=== PATIENT | female | born 1945 | race Caucasian/White ===

== ENCOUNTER 2020-04-08 13:21 | Outpatient (CLI) | payer MEDICARE, OTHER, SELFPAY ==
--- NOTE | 2020-04-08 14:27 | MM_ITS ---
WS: [id number] DIAGNOSTIC BILATERAL DIGITAL MAMMOGRAM WITH CAD HISTORY: RIGHT BREAST PAIN COMPARISON: 12/24/2016 TECHNIQUE: Bilateral craniocaudad, mediolateral oblique, and mediolateral views are submitted. Spot c ompression RIGHT CC Computer aided detection utilized. Breast composition: There are scattered areas of fibroglandular density. Palpable marker is placed al macrina the RIGHT breast at 3:00. There is no underlying mass identified. There are several nodules withi n the LEFT breast. These nodules are stable since 2017. MM/[place] [id number] IMPRESSION: BI-RADS: 0-Incomplete: Need additional imaging evaluation FOLLOW UP: Need Additional Imaging Ultrasound evaluation of the palpable abnormality in the RIGHT breast is recomm ended. Unfortunately we were not able to perform the ultrasound on the same day as a diagnostic mammogram as the prior studies were not available for comparis on.
== END 2020-04-08 13:22 | disposition home or self-care (01) ==
LOC: RADSHAW 13:32
PROVIDERS: Family Provider Family Medicine; Visit Provider Family Medicine
DX: N64.4 Mastodynia (principal)
CPT/HCPCS: 77066

== ENCOUNTER 2020-04-09 13:39 | Outpatient (CLI) | payer MEDICARE, OTHER, SELFPAY ==
--- NOTE | 2020-04-09 14:00 | US_ITS ---
WS: [id number] ULTRASOUND RIGHT BREAST HISTORY: RIGHT BREAST PALPABLE AREA AT 3:00. COMPARISON: None available. TECHNIQUE: 2-D and Doppler. Palpable area at 3:00. There is no underlying mass or soft tissue change. Note shadowing or distortio n. US/US breast RT limited* [id number] IMPRESSION: BI-RADS: 2-Benign FOLLOW-UP: 1 Year Follow-up
== END 2020-04-09 13:40 | disposition home or self-care (01) ==
LOC: RADSHAW 13:39
PROVIDERS: PCP Family Medicine; Visit Provider Family Medicine
DX: N64.4 Mastodynia (principal)
CPT/HCPCS: 76642

== ENCOUNTER 2020-09-07 01:48 | Inpatient (IN) | payer MEDICARE, OTHER, SELFPAY ==
[2020-09-07] VITALS (28 sets, daily range): BP systolic 163–182; BP diastolic 66–91; PULSE 65–97; RESP 1–23; TEMP 36.7–36.8; O2SAT 90–95; BMI 33.3
--- NOTE | 2020-09-07 02:03 | PM.HP ---
Providers/Chief Complaint Admitting Physician: Era Mckeon MD Primary Care Provider: Prince Vázquez Chief Complaint: Chest Pain History of Present Illness Kayla Ibrahim is a 75 year old female who has history of hypertension, obesity, CVA presented today with chief complaint of left-sided chest discomfort. Patient is stating that for last 3 to 5 days she has been experiencing on and off/intermittent chest discomfort. She saw her PCP few days ago who recommended her to avoid strenuous activities and get a stress test. At home she was working at her computer when she started experiencing left-sided chest discomfort, she called her PCP again who recommended her to go to the ER if pain persisted more than 20 minutes, patient is stating that it stayed for about 35 minutes and got relieved after third nitroglycerin. She is describing this pain as sharp/stabbing radiating to his left shoulder. No nausea, vomiting or diaphoresis. She does not smoke or drink alcohol, lives alone, called her sister who brought her to [place] ER. I was called by the ER physician for chest pain rule out, on arrival patient was hypertensive 200/87 mmHg, reproducible chest pain no shortness of breath saturating well Outside facility blood work revealed troponin 6, D-dimer unremarkable, magnesium normal, creatinine 1.2 otherwise normal chest x-ray, CBC and BMP, EKG sinus rhythm without ischemic or infarct change Patient is stating that 11 years ago in [place] she had left heart cardiac catheterization which revealed 50% stenosis of her left coronary artery, she never had any stents placed no history of NV, CHF, stroke or cancer. She had screening colonoscopy 3 polyps were removed they were benign. Review of Systems Const: Denies: fever(s) Eyes: Denies: change in vision ENMT: Denies: throat pain Card: Reports: chest pain; Denies: palpitations, irregular heart rhythm, swelling of feet/ankles, lightheadedness, dyspnea on exertion or orthopnea Resp: Denies: dyspnea GI: Denies: abdominal pain : Denies: flank pain Musc: Denies: neck pain Skin/Breast: Denies: rash Neuro: Denies: headache(s) Psych: Denies: anxiety Endo: Denies: polyuria Carmine/Lymph: Denies: easy bruising All/Imm: Denies: urticaria Medications/Allergies Home Medications Medication Instructions Recorded Confirmed Last Taken Type allopurinol 100 mg PO DAILY 09/07/20 09/07/20 09/06/20 08:00 History amlodipine 5 mg PO DAILY 09/07/20 09/07/20 09/06/20 08:00 History aspirin 81 mg PO DAILY 09/07/20 09/07/20 09/06/20 08:00 History azelastine 2 spray INTRANASAL BID 09/07/20 09/07/20 09/06/20 08:00 History baclofen 10 mg PO DAILY 09/07/20 09/07/20 09/06/20 08:00 History cetirizine 10 mg PO DAILY 09/07/20 09/07/20 09/06/20 08:00 History famotidine 20 mg PO BID PRN 09/07/20 09/07/20 09/06/20 08:00 History furosemide 20 mg PO BID 09/07/20 09/07/20 09/06/20 08:00 History losartan 100 mg PO DAILY 09/07/20 09/07/20 09/06/20 08:00 History lovastatin 20 mg PO 1700 09/07/20 09/07/20 09/06/20 17:00 History potassium chloride 20 meq PO DAILY 09/07/20 09/07/20 09/06/20 08:00 History propranolol 60 mg PO DAILY 09/07/20 09/07/20 09/06/20 08:00 History PFSH Acute PFSH: Medical History Abnormal colonoscopy 3 benign polyps CAD (coronary artery disease) CVA (cerebral vascular accident) HTN (hypertension) Obesity Surgical History H/O: hysterectomy Hip joint replacement status Family History Denies family history of CAD (coronary artery disease) Chronic kidney disease (CKD) Cancer Social History Smoking and tobacco status: former smoker Alcohol intake: never Substance/Drug Use: never Lives independently: Yes Housing: House Physical Exam Narrative: EXAM NARRATIVE: Very pleasant and cooperative female Was laying in her left lateral position when I enter the room, Reproducible chest pain S1, S2 no signs of heart failure or murmur Abdomen soft central obesity Lower extremity no edema gangrene or ulcer EOMI, PERRLA GCS 15 awake alert no neurological deficits Bilateral breath sounds no adventitious rhonchi or crackles No joint swelling A&P Assessment and plan (1) Atypical chest pain: Status: Acute (2) Obesity: Status: Acute (3) HTN (hypertension): Status: Acute Additional A&P Information Atypical chest pain Reproducible, EKG unremarkable troponin D-dimer unremarkable Differentials would include musculoskeletal chest discomfort, PE ruled out due to low D-dimer, patient is stating that she had 50% nausea of left coronary vessel which was 11 years ago, she did not respond to nitroglycerin however third nitroglycerin did help her symptoms, she will need cardiac stress test outpatient We will request echo in the morning and observe overnight we will do 6-hour troponin and EKG Hypertensive urgency Systolic blood pressure 200/86 mmHg, I will give her hydralazine 5 mg IV push and keep her on losartan and amlodipine, I will increase her amlodipine dose to 10 mg Lower extremity swelling: Patient does take furosemide 20 mg daily Clinically does not look fluid overloaded no active signs of heart failure Cardiac diet DVT prophylaxis Lovenox Full code Attestations Medical Necessity Statement*: Anticipating discharge in less than 48 hours will need investigation for chest pain rule out Time Spent in Patient Care: (>than 50% of time spent in counselling and/or direct pt care on unit). 30mins Coding Level of Care Code Acute Tufting Machine Fixer for Chg Fwd Diagnoses Atypical chest pain R07.89 Obesity E66.9 HTN (hypertension) I10
--- NOTE | 2020-09-07 02:12 | ECG_ITS ---
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 Measurements Intervals [place] Rate: 70 P: 42 [place]: 137 QRS: -9 QRSD: 100 T: 18 QT: 432 QTc: 467 Interpretive Statements SINUS RHYTHM WITH SINUS ARRHYTHMIA LOW QRS VOLTAGE IN PRECORDIAL LEADS [QRS DEFLECTION < 1.0 mV IN CHEST LEADS] NONSPECIFIC T-WAVE ABNORMALITY No previous ECG available for comparison Electronically Signed On 09-08-2020 10:37:44 CDT by Angela Diego M.D. [email or web address].[email or web address]/store/[id number]
--- NOTE | 2020-09-07 02:12 | USCV_ITS ---
Alexandria Kayla Age: 75 Gender: F : 1945 Exam Date: 09/07/2020 08:25 Ordering Phys: Era Mckeon MD Technologist: Shannan Rodriguez Exam Location: [facility] [place] Indication: ANGINA BP: 179 / 67 HR: 75 Rhythm: Sinus Technical Quality: Fair MEASUREMENTS (Male / Female) Normal Values 2D ECHO LV Diastolic Diameter PLAX 3.1 cm 4.2 - 5.9 / 3.9 - 5.3 cm LV Systolic Diameter PLAX 1.8 cm LV Chamber Size 3.7 cm IVS Diastolic Thickness 1.3 cm 0.6 - 1.0 / 0.6 - 0.9 cm IVS Systolic Thickness 1.8 cm LVPW Diastolic Thickness 1.0 cm 0.6 - 1.0 / 0.6 - 0.9 cm LVPW Systolic Thickness 1.1 cm RV Chamber Size 2.3 cm LVOT Diameter 1.9 cm LV Ejection Fraction 2D Teich 75.1 % LV Ejection Fraction MOD 2C 74.3 % LV Ejection Fraction 2C AL 75.7 % LA Diameter 3.1 cm LA Width 3.4 cm LA Height 5.5 cm RA Width 1.9 cm RA Height 4.8 cm Aorta at Sinotubular Diameter 2.0 cm M-MODE LV Diastolic Diameter MM 5.5 cm 4.2 - 5.9 / 3.9 - 5.3 cm LV Systolic Diameter MM 3.2 cm LV Ejection Fraction MM Teich 72.3 % IVS Diastolic Thickness MM 1.0 cm 0.6 - 1.0 / 0.6 - 0.9 cm IVS Systolic Thickness MM 1.4 cm LVPW Diastolic Thickness MM 1.2 cm 0.6 - 1.0 / 0.6 - 0.9 cm LVPW Systolic Thickness MM 1.4 cm RV Diastolic Diameter MM 0.7 cm Aortic Annulus Diameter 3.2 cm LA Ao Ratio MM 1.1 MV E Point Septal Separation 0.3 cm DOPPLER AV Peak Velocity 137.0 cm/s LVOT Peak Velocity 139.0 cm/s AV Area Cont Eq vti 2.7 cm squared AV Area Cont Eq pk 2.8 cm squared MV Area PHT 2.8 cm squared Mitral E to A Ratio 0.7 MV E' Velocity 43.5 cm/s Mitral E to MV E' Ratio 11.0 Mitral E to LV E' Lateral Ratio 10.9 Mitral E to LV E' Septal Ratio 11.2 TR Peak Velocity 300.3 cm/s TR Peak Gradient 36.1 mmHg TV Peak E Velocity 44.0 cm/s Right Atrial Pressure 3.0 mmHg Pulmonary Artery Systolic Pressu 39.1 mmHg PV Peak Velocity 80.0 cm/s RV Acceleration Time 0.1 s RV Ejection Time 0.2 s RV AcT/ET 0.2 FINDINGS Left Ventricle Normal left ventricular size, systolic function and wall thickness, with no regional wall motion abnormalities. Left ventricular ejection fraction is estimated at 65 %. Normal diastolic function. Right Ventricle Normal right ventricular size and systolic function. Right ventricular systolic pressure 40 mmHg. Right Atrium Normal right atrial size. Right atrial pressure estimated at 3 mmHg. Left Atrium Mildly increased left atrial size. Mitral Valve Thickened mitral valve. No mitral valve stenosis. No mitral valve regurgitation. Aortic Valve Structurally normal trileaflet aortic valve. No aortic valve stenosis. No aortic valve regurgitation. Tricuspid Valve Structurally normal tricuspid valve. Trace tricuspid valve regurgitation. Pulmonic Valve Pulmonic valve not well visualized. Pericardium No pericardial effusion. Prominent epicardial fat. Aorta Normal size aortic root. Normal-sized inferior vena cava. CONCLUSIONS 1. Normal left ventricular size, systolic function and wall thickness, with no regional wall motion abnormalities. Left ventricular ejection fraction is estimated at 65 %. Normal diastolic function. 2. Normal right ventricular size and systolic function. 3. Pulmonary artery pressure estimated at 40 mmHg. 4. No significant valvular abnormality. 5. No prior similar studies to compare. Angela Diego MD (Electronically Signed) Final Date: 08 September 2020 18:05 S
[2020-09-07] MEDS: lidocaine 2% viscous 15 ML, aluminum-mag hydrox-simethicon 30 ML, sucralfate oral liq 1 GM PO (03:01)
[2020-09-07] MEDS: hyDRALAzine 20 mg/mL INJ 1 mL 10 MG IVP ×2 (03:05→14:26)
[2020-09-07] MEDS: enoxaparin 40 mg/0.4 mL Syringe SUBCUT (03:05)
[2020-09-07] MEDS: LORazepam 0.5 mg Tablet 0.25 MG PO (03:18)
--- NOTE | 2020-09-07 03:32 | PC.NURSE ---
Patient arrived on unit via EMS. Patient is A & O x4. Patient has complaints of GI upset and increased BP during transport per EMS. BP 218/92 at arrival. Medications ordered and given for BP. Nurse will continue to monitor.
[2020-09-07 04:15] LABS: Anion Gap 12.8 (5-19); Blood Urea Nitrogen 23 mg/dL (8-23); Calcium 9.3 mg/dL (8.5-10.5); Carbon Dioxide 26 mmol/L (22-29); Chloride 103 mmol/L (98-107); Glucose 101 mg/dL (65-115); Osmolality Calculated 290 mOsm/kg (285-295); Potassium 3.8 mmol/L (3.5-5.1); Sodium 138 mmol/L (136-145)
[2020-09-07 04:25] LABS: Thyroid Stimulating Hormone 1.81 uIU/mL (0.27-4.20)
[2020-09-07 05:01] LABS: Troponin T (5th) Once 8 ng/L (0-10)
[2020-09-07] MEDS: losartan 50 mg Tablet 100 MG PO (08:07)
[2020-09-07] MEDS: allopurinol 100 mg Tablet PO (08:07)
[2020-09-07] MEDS: aspirin 81 mg Chew Tablet PO (08:07)
--- NOTE | 2020-09-07 08:33 | PC.NURSE ---
patient refused amlodipine at this time states i take that at night time and only half the dose being offered now i will not be messing with my blood pressure meds my blood pressure is fine and i will be taking them how i normally do when i get home will report to provider
--- NOTE | 2020-09-07 09:35 | ECG_ITS ---
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 Measurements Intervals [place] Rate: 69 P: 46 MT: 138 QRS: -6 QRSD: 90 T: 44 QT: 413 QTc: 443 Interpretive Statements SINUS RHYTHM Compared to ECG 09/07/2020 05:58:29 Sinus arrhythmia no longer present T-wave abnormality no longer present Electronically Signed On 09-08-2020 10:52:49 CDT by Angela Diego M.D. [id number]
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
--- NOTE | 2020-09-07 09:39 | PC.NURSE ---
call from Dr. Koch at this time in response to patient reports of chest pain that radiated to back sharp and intermittent in nature, patient also reports a headache starting instructions received to order Tylenol 650 mg Q4H PRN for pain other orders to be placed by provider for diagnostics
[2020-09-07] MEDS: iohexol 350 mg/mL 100 mL Btl IV (10:04)
[2020-09-07] MEDS: acetaminophen 325 mg Tablet 650 MG PO ×2 (10:16→21:11)
[2020-09-07 10:56] LABS: Troponin T (5th) Once 7 ng/L (0-10)
[2020-09-07] MEDS: pantoprazole DR 40 mg Tablet PO (14:26)
--- NOTE | 2020-09-07 17:31 | ECG_ITS ---
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 Measurements Intervals [place] Rate: 95 P: 42 OR: 112 QRS: -4 QRSD: 87 T: 44 QT: 373 QTc: 469 Interpretive Statements SINUS RHYTHM WITH SHORT OR INTERVAL Compared to ECG 09/07/2020 10:43:42 Short OR interval now present Electronically Signed On 09-08-2020 10:30:07 CDT by Angela Diego M.D. [id number]
[2020-09-07] MEDS: nitroglycerin 0.4 mg sublingual Tablet SUBLINGUAL (17:58)
[2020-09-07] MEDS: atorvastatin 40 mg Tablet 20 MG PO (17:59)
--- NOTE | 2020-09-07 18:00 | PC.NURSE ---
patient reports chest pain and palpitations and racing heart rate blood pressure remains elevated 170/86 nitro given 153//78 after 1 nitro chest pain relived however is intermittent in nature patient reporting headache after nitro administration 139/74 5 min after administration
--- NOTE | 2020-09-07 19:41 | PC.NURSE ---
Beside report received from Kristen Greer RN. Patient is resting in bed watching TV. A & O x4. Assisted patient to bathroom. Patient verbalizes headache but no other needs or concerns at this time. Nurse will continue to monitor.
--- NOTE | 2020-09-07 19:59 | PM.PN ---
Subjective Subjective: Interval history: Continue to have intermittent episodes of pain in the left side lower chest radiating to the back toward the scapula. Currently no vomiting. Normal nausea. No abdominal pain elsewhere. Has been having some intermittent cough for a while. Denies pleuritic component to the pain. No hemoptysis. Repositioning, inspiration, do not trigger the pain, although it sometimes appears in different positions. Reports she did pull a muscle elsewhere on the left side previously but this has been healing. Current pain started almost out of nowhere while she was sitting down playing a computer card game. Denies any significant recent stressors. Blood pressure elevated and difficult to control, and she denies that this has been an issue for her previously. At home blood pressures usually run 130s. Earlier today having a headache as well. Currently better. Vitals/I&O/Wt Last Vital Signs Temp 98.3 F 09/07/20 10:35 Pulse 70 09/07/20 14:00 Resp 19 H 09/07/20 10:35 BP 182/66 09/07/20 15:07 Pulse Ox 95 09/07/20 10:35 09/07/20 09/07/20 09/07/20 06:59 14:59 22:59 Intake Total 240 / 240 240 / 480 Balance 240 / 240 240 / 480 Weight last 48 hrs Weight 77.428 kg Physical Exam Const: COMMON NORMALS: no acute distress and patient oriented x3 HENMT: COMMON NORMALS: oropharynx normal Neck/C-Spine: COMMON NORMALS: no JVD Resp: COMMON NORMALS: normal respiratory effort and clear to auscultation bilaterally AUSCULTATION: clear to auscultation bilaterally Cardio: COMMON NORMALS: no JVD, regular rhythm, S1 normal heart sound present, S2 normal heart sound present and No murmurs present (Cardio) RHYTHM: regular rhythm HEART SOUNDS: S1 normal heart sound present and S2 normal heart sound present GI: COMMON NORMALS: Normal to inspection, nondistended, normoactive bowel sounds present, Soft to palpation and non-tender PALPATION: Yes Soft to palpation Extremity: COMMON NORMALS: no joint enlargement and no pedal edema Neuro: COMMON NORMALS: patient oriented x3 and moves all extremities Skin: COMMON NORMALS: no rashes or lesions noted GENERAL SKIN EXAM: no rashes or lesions noted Data : 09/07/20 02:56 A&P Assessment and plan (1) Atypical chest pain: Recurrent episodes of left-sided chest pain radiating to the left scapula. Still happening. Atypical chest pain, but without clear trigger/etiology. Due to hypertension, persistence of symptoms CT angiogram chest obtained. No dissection reported, no PE noted and opacified arteries. Incidentally found antral duodenal wall thickening. Discussed findings with her. She has been taking ibuprofen recently. We are starting her on Protonix. Chest pain radiating to the back could be secondary to duodenal inflammation, although it is rating towards left scapula and associated with hypertension which is unusual for her. She does have known coronary disease, reports years ago has had angiogram with found 50% stenosis of one of the coronary arteries at which time had no intervention performed. Currently for generation troponin repeatedly normal. EKG not suggestive of acute RI. Discussed with her. We have requested TTE which has been done, not read so far. We will continue to optimize blood pressures, she has required several intravenous medication doses to try to control recurrent blood pressure spikes. We will follow-up TTE result. Initiate Imdur. Monitor symptoms. She understands will need additional assessment/risk stratification. Continue aspirin, propranolol not available, will add metoprolol, statin. Status: Acute (2) HTN (hypertension): Resistant hypertension, difficult to control, with hypertensive urgency. Required additional IV dose of hydralazine. Amlodipine dose increased to 10 mg p.o. She had declined to take the morning dose. Switch to bedtime. Continue losartan. Add metoprolol. Imdur. Continue cardiac diet. Discussed with her to discontinue ibuprofen. Status: Acute (3) Gastroduodenitis: Start PPI. Discussed with her to discontinue ibuprofen. Status: Acute Additional A&P Information Lower extremity swelling: Patient does take furosemide 20 mg daily Clinically does not look fluid overloaded no active signs of heart failure Cardiac diet DVT prophylaxis Lovenox Full code Attestations Medical Necessity Statement*: Admission of over 2 midnights is needed for assessment management of recurrent episodes of unexplained chest pain, resistant difficult to control hypertension with hypertensive urgency, in a lady with known underlying coronary disease. Coding Level of Care Code Acute Watch Assembler for [facility] Fwd Diagnoses Atypical chest pain R07.89 HTN (hypertension) I10 Gastroduodenitis K29.90
[2020-09-07] MEDS: isosorbide mononitrate ER 30 mg Tablet PO (21:07)
[2020-09-07] MEDS: metoprolol tartrate 25 mg Tablet PO (21:08)
[2020-09-07] MEDS: amlodipine 5 mg Tablet 10 MG PO (21:08)
[2020-09-08] VITALS (10 sets, daily range): BP systolic 116–133; BP diastolic 54–72; PULSE 63–78; RESP 16–21; TEMP 36.6–37; O2SAT 92–96
[2020-09-08] MEDS: enoxaparin 40 mg/0.4 mL Syringe SUBCUT (03:01)
[2020-09-08 05:49] LABS: Basophils % 0.4 %; Eosinophils % 0.8 %; Hematocrit 46.9 % (37.0-47.0); Hemoglobin 14.7 g/dL (11.5-15.3); Lymphocytes # 1.8 10^3/uL (0.8-4.8); Lymphocytes % 33.1 %; Mean Corpuscular HGB Conc 31.3 g/dL (30.0-36.0); Mean Corpuscular Hemoglobin 29.5 pg (28.0-34.0); Mean Platelet Volume 12.1 fL (7.4-10.4); Monocytes # 1.6 10^3/uL (0.2-0.9); Monocytes % 29.5 %; Neutrophils # 1.84 10^3/uL (1.8-7.7); Neutrophils % 34.5 %; Nucleated Red Blood Cells % 0 %; Platelet Count 136 10^3/cmm (130-400); Red Blood Count 4.99 10^6/uL (4.1-5.3); Red Cell Distribution Width 12.1 % (12.1-15.1); White Blood Count 5.3 10^3/uL (4.0-10.0)
[2020-09-08] MEDS: pantoprazole DR 40 mg Tablet PO (08:25)
[2020-09-08] MEDS: metoprolol tartrate 25 mg Tablet PO ×2 (08:25→20:15)
[2020-09-08] MEDS: allopurinol 100 mg Tablet PO (08:26)
[2020-09-08] MEDS: losartan 50 mg Tablet 100 MG PO (08:26)
[2020-09-08] MEDS: aspirin 81 mg Chew Tablet PO (08:26)
--- NOTE | 2020-09-08 08:36 | PC.NURSE ---
spoke with Dr washington with concerns of patient taking new dose of imdur at 2100 last night and its marked as a daily medication blood pressure 133/68 with no reports of chest pain or discomfort instructions from Dr. washington to change imdur time to 1800 if need be we will re-evaluate if needed
[2020-09-08 09:16] LABS: Alanine Aminotransferase 9 U/L (0-33); Albumin Level 4.2 g/dL (3.5-5.2); Alkaline Phosphatase 83 IU/L (35-105); Anion Gap 12.8 (5-19); Aspartate Amino Transferase 15 U/L (0-32); Blood Urea Nitrogen 14 mg/dL (8-23); Calcium 9.3 mg/dL (8.5-10.5); Carbon Dioxide 25 mmol/L (22-29); Chloride 102 mmol/L (98-107); Globulin 2.3 g/dL (1.3-4.6); Glucose 142 mg/dL (65-115); Osmolality Calculated 285 mOsm/kg (285-295); Potassium 3.8 mmol/L (3.5-5.1); Sodium 136 mmol/L (136-145); Total Bilirubin 0.5 mg/dL (0.15-1.2); Total Protein 6.5 g/dL (6.6-8.7)
[2020-09-08] MEDS: atorvastatin 40 mg Tablet 20 MG PO (17:54)
[2020-09-08] MEDS: isosorbide mononitrate ER 30 mg Tablet PO (17:54)
[2020-09-08] MEDS: amlodipine 5 mg Tablet 10 MG PO (20:15)
--- NOTE | 2020-09-08 20:48 | P.PN_ITS ---
Subjective Subjective: Interval history: This morning she was again having an episode of chest pain, which had since resolved. Does not feel safe returning home currently. Would like to stay for stress test tomorrow. Otherwise denies headache, dizziness, lightheadedness or shortness of breath. No nausea vomiting. No abdominal pain. Vitals/I&O/Wt Last Vital Signs Temp 98 F 09/08/20 19:34 Pulse 72 09/08/20 19:34 Resp 17 09/08/20 19:34 BP 130/54 09/08/20 19:34 Pulse Ox 92 09/08/20 19:34 09/08/20 09/08/20 09/08/20 06:59 14:59 22:59 Intake Total 250 / 730 480 / 480 240 / 720 Balance 250 / 730 480 / 480 240 / 720 Weight last 48 hrs Weight 77.428 kg Physical Exam Const: COMMON NORMALS: no acute distress and patient oriented x3 HENMT: COMMON NORMALS: oropharynx normal Neck/C-Spine: COMMON NORMALS: no JVD Resp: COMMON NORMALS: normal respiratory effort and clear to auscultation bilaterally AUSCULTATION: clear to auscultation bilaterally Cardio: COMMON NORMALS: no JVD, regular rhythm, S1 normal heart sound present, S2 normal heart sound present and No murmurs present (Cardio) RHYTHM: regular rhythm HEART SOUNDS: S1 normal heart sound present and S2 normal heart sound present GI: COMMON NORMALS: Normal to inspection, nondistended, normoactive bowel sounds present, Soft to palpation and non-tender PALPATION: Yes Soft to palpation Extremity: COMMON NORMALS: no joint enlargement and no pedal edema Neuro: COMMON NORMALS: patient oriented x3 and moves all extremities Skin: COMMON NORMALS: no rashes or lesions noted GENERAL SKIN EXAM: no rashes or lesions noted Data : 09/08/20 04:59 09/08/20 08:15 A&P Assessment and plan (1) Atypical chest pain: Again episode this morning. Overall better, none since the morning. Does not feel secure returning home. Will continue to monitor. Optimize hypertension. Will request for stress test for tomorrow. Continue Imdur. Antihypertensives. Continue PPI. Recurrent episodes of left-sided chest pain radiating to the left scapula. Still happening. Atypical chest pain, but without clear trigger/etiology. Due to hypertension, persistence of symptoms CT angiogram chest obtained. No dissection reported, no PE noted and opacified arteries. Incidentally found antral duodenal wall thickening. Discussed findings with her. She has been taking ibuprofen recently. We are starting her on Protonix. Chest pain radiating to the back could be secondary to duodenal inflammation, although it is rating towards left scapula and associated with hypertension which is unusual for her. She does have known coronary disease, reports years ago has had angiogram with found 50% stenosis of one of the coronary arteries at which time had no intervention performed. Currently for generation troponin repeatedly normal. EKG not suggestive of acute [place]. TTE with normal ejection fraction. Continue aspirin, propranolol not available, added metoprolol. Statin. Status: Acute (2) HTN (hypertension): Blood pressure is much better today. Overall is feeling better. Continue Imdur, losartan, amlodipine, metoprolol. Discussed with her to discontinue ibuprofen. Status: Acute (3) Gastroduodenitis: Started PPI. Discussed with her to discontinue ibuprofen. With smoking history would benefit from endoscopic follow-up. Status: Acute Additional A&P Information Lower extremity swelling: does not look fluid overloaded no active signs of heart failure Cardiac diet DVT prophylaxis Lovenox Full code Attestations Medical Necessity Statement*: Continue admission for assessment management of recurrent episodes of atypical chest pain, recurrent hypertensive urgency, poorly controlled hypertension, additional assessment of coronary artery disease, treatment of gastroduodenitis. Coding Level of Care Code Acute Cash Applications Analyst for [facility] Fwd Diagnoses Atypical chest pain R07.89 HTN (hypertension) I10 Gastroduodenitis K29.90
[2020-09-09] VITALS (10 sets, daily range): BP systolic 122–163; BP diastolic 65–82; PULSE 62–78; RESP 12–32; TEMP 36.4–36.8; O2SAT 92–96
[2020-09-09] MEDS: enoxaparin 40 mg/0.4 mL Syringe SUBCUT (03:11)
[2020-09-09 04:25] LABS: Basophils % 0.4 %; Eosinophils % 0.4 %; Hematocrit 41.2 % (37.0-47.0); Lymphocytes % 40.8 %; Mean Corpuscular HGB Conc 31.6 g/dL (30.0-36.0); Mean Corpuscular Hemoglobin 29.1 pg (28.0-34.0); Mean Corpuscular Volume 92.2 fL (81-99); Mean Platelet Volume 12.3 fL (7.4-10.4); Monocytes # 1.3 10^3/uL (0.2-0.9); Monocytes % 26.8 %; Neutrophils # 1.47 10^3/uL (1.8-7.7); Neutrophils % 30.2 %; Nucleated Red Blood Cells % 0 %; Platelet Count 115 10^3/cmm (130-400); Red Blood Count 4.47 10^6/uL (4.1-5.3); Red Cell Distribution Width 12.1 % (12.1-15.1); White Blood Count 4.9 10^3/uL (4.0-10.0)
[2020-09-09 04:37] LABS: Alanine Aminotransferase 7 U/L (0-33); Albumin Level 3.7 g/dL (3.5-5.2); Alkaline Phosphatase 74 IU/L (35-105); Aspartate Amino Transferase 14 U/L (0-32); Blood Urea Nitrogen 22 mg/dL (8-23); Carbon Dioxide 24 mmol/L (22-29); Chloride 103 mmol/L (98-107); Globulin 2.2 g/dL (1.3-4.6); Glucose 95 mg/dL (65-115); Osmolality Calculated 285 mOsm/kg (285-295); Sodium 136 mmol/L (136-145); Total Bilirubin 0.4 mg/dL (0.15-1.2); Total Protein 5.9 g/dL (6.6-8.7)
[2020-09-09 04:43] LABS: Anion Gap 13.3 (5-19); Potassium 4.3 mmol/L (3.5-5.1)
--- NOTE | 2020-09-09 08:00 | ECG_ITS ---
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 The perfusion scan will be documented separately. DATA: Baseline heart rate was 63 beats per minute. Baseline blood pressure was 154/96 millimeters of mercury. Target heart rate was 144. Maximum heart rate achieved was 87. which was 60 % of the predicted target heart rate. Maximum blood pressure was millimeters of mercury. The reason for ending the test was completion of the protocol. The patient did not experience any symptoms. ELECTROCARDIOGRAM: BASELINE: Sinus rhythm. Normal axis. Otherwise, no ST-T changes suggestive of ischemia noted. No arrhythmia noted. EXERCISE: After Lexiscan injection, no ST-T changes suggestive of ischemic noted. No arrhythmia noted. CONCLUSION: Please note due to baseline abnormality of the EKG specificity and sensitivity of the EKG portion of LexiScan MIBI stress test will be low 1. EKG not suggestive of ischemia 2. Lexiscan injection unremarkable. 3. Perfusion scan will be documented separately. Electronically Signed On 10-08-2020 19:55:37 CDT by ELSA SUTTON [id number]
[2020-09-09] MEDS: metoprolol tartrate 25 mg Tablet PO (08:55)
[2020-09-09] MEDS: losartan 50 mg Tablet 100 MG PO (08:55)
[2020-09-09] MEDS: pantoprazole DR 40 mg Tablet PO (08:55)
[2020-09-09] MEDS: allopurinol 100 mg Tablet PO (08:55)
[2020-09-09] MEDS: aspirin 81 mg Chew Tablet PO (08:55)
--- NOTE | 2020-09-09 12:20 | PC.NURSE ---
Patient taken to nuclear medicine for stress test.
[2020-09-09] MEDS: regadenoson 0.4 Mg/5 ml Syringe IVP (13:15)
--- NOTE | 2020-09-09 17:05 | PM.DCS ---
Discharge Providers Date of Admission: 09/07/20 19:44 Date of Discharge: September 09, 2020 Attending Provider at Admission: Era Mckeon MD Attending Provider at Discharge: Lenny Zelaya MD Primary Care Provider: Prince Vázquez Diagnoses at Discharge Discharge Diagnosis (1) Atypical chest pain: Status: Acute (2) HTN (hypertension): Status: Acute (3) Gastroduodenitis: Status: Acute Reason for Visit Reason for Visit: Chest Pain Hospital Course Hospital Course Kayla Ibrahim is a 75 year old female who has history of hypertension, obesity, CVA presented today with chief complaint of left-sided chest discomfort. Patient is stating that for last 3 to 5 days she has been experiencing on and off/intermittent chest discomfort. She saw her PCP few days ago who recommended her to avoid strenuous activities and get a stress test. At home she was working at her computer when she started experiencing left-sided chest discomfort, she called her PCP again who recommended her to go to the ER if pain persisted more than 20 minutes, patient is stating that it stayed for about 35 minutes and got relieved after third nitroglycerin. She is describing this pain as sharp/stabbing radiating to his left shoulder. No nausea, vomiting or diaphoresis. She does not smoke or drink alcohol, lives alone, called her sister who brought her to [facility]. She was admitted to the hospital for chest pain evaluation. She had recurrent episodes of left-sided chest pain radiating to the left scapula both prior and during hospitalization. Atypical chest pain, but without clear trigger/etiology. Due to hypertension, persistence of symptoms CT angiogram of chest obtained. No dissection reported, no PE noted and opacified arteries. Incidentally found antral duodenal wall thickening. Discussed findings with her. She has been taking ibuprofen recently. We are starting her on Protonix. Chest pain radiating to the back could be secondary to duodenal inflammation, although it is rating towards left scapula and associated with hypertension which is unusual for her. She does have known coronary disease, reports years ago has had angiogram with found 50% stenosis of one of the coronary arteries at which time had no intervention performed. Currently for generation troponin repeatedly normal. EKG not suggestive of acute [place]. TTE with normal ejection fraction. She underwent cardiac stress test on September 09 which is negative for any active signs of ischemia. She has been discharged hemodynamically stable condition with advised to follow-up with a primary care provider within next 2 weeks, continue taking Protonix for next 2 weeks. To check her blood pressure and maintain blood pressure diary for next 2 weeks and follow-up with her primary care provider. Her dose of amlodipine has been increased to 10 mg daily for now. Physical Exam Const: COMMON NORMALS: no acute distress and patient oriented x3 HENMT: COMMON NORMALS: oropharynx normal Neck/C-Spine: COMMON NORMALS: no JVD Resp: COMMON NORMALS: normal respiratory effort and clear to auscultation bilaterally AUSCULTATION: clear to auscultation bilaterally Cardio: COMMON NORMALS: no JVD, regular rhythm, S1 normal heart sound present, S2 normal heart sound present and No murmurs present (Cardio) RHYTHM: regular rhythm HEART SOUNDS: S1 normal heart sound present and S2 normal heart sound present GI: COMMON NORMALS: Normal to inspection, nondistended, normoactive bowel sounds present, Soft to palpation and non-tender PALPATION: Yes Soft to palpation Extremity: COMMON NORMALS: no joint enlargement and no pedal edema Neuro: COMMON NORMALS: patient oriented x3 and moves all extremities Skin: COMMON NORMALS: no rashes or lesions noted GENERAL SKIN EXAM: no rashes or lesions noted Discharge Data Data Completed and Pending: Completed Studies During Hospitalization Category Date Time Status CT angio chest 71 275 Urgent Cat Scan 09/07/20 09:37 Completed Sestamibi Stress Test Request Monique ne Exams 09/09/20 08:00 Draft NM sue perf SPECT r/s* [id number] Routin e Nuc Med 09/09/20 18:12 Completed CV echo complete* [id number] Routine Ultrasound 09/07/20 02:12 Completed Pending at discharge Category Date Time Status Complete Blood Co unt w/Auto AM LABS Lab 09/10/20 04:00 Ordered Comprehensive Met abolic Panel AM LA BS Lab 09/10/20 04:00 Ordered Labs from last 24 hours 09/09/20 09/09/20 03:44 03:44 WBC 4.9 RBC 4.47 Hgb 13.0 Hct 41.2 MCV 92.2 MCH 29.1 MCHC 31.6 RDW 12.1 Plt Count 115 L MPV 12.3 H Neut % (Auto) 30.2 Lymph % (Auto) 40.8 [place] % (Auto) 26.8 Eos % (Auto) 0.4 Baso % (Auto) 0.4 Neut # (Auto) 1.47 L Lymph # (Auto) 2.0 [place] # (Auto) 1.3 H Eos # (Auto) 0.0 Baso # (Auto) 0.0 Nucleated RBC % (a uto) 0 Nucleated RBCs # 0.0 Sodium 136 Potassium 4.3 Chloride 103 Carbon Dioxide 24 Anion Gap 13.3 BUN 22 Creatinine 0.7 GFR Calculation Not Reportable Glucose 95 Calculated Osmolal ity 285 Calcium 9.0 Total Bilirubin 0.4 AST 14 ALT 7 Alkaline Phosphata se 74 Total Protein 5.9 L Albumin 3.7 Globulin 2.2 Vitals: Last Vital Signs Temp 97.6 F 09/09/20 15:05 Pulse 66 09/09/20 15:30 Resp 14 09/09/20 15:15 BP 163/82 09/09/20 15:15 Pulse Ox 96 09/09/20 15:15 Discharge Plan Discharge Patient Disposition: Home Condition: Stable Prescriptions: New amlodipine 5 mg Tablet 10 mg PO BEDTIME 30 Days Qty: 30 RF: 0 pantoprazole 40 mg Tablet,Delayed Release (Dr/Ec) 40 mg PO DAILY Qty: 30 RF: 0 Continued cetirizine 10 mg Tablet 10 mg PO DAILY RF: 0 propranolol 60 mg Capsule,Extended Release 24 Hr 60 mg PO DAILY RF: 0 allopurinol 100 mg Tablet 100 mg PO DAILY RF: 0 baclofen 10 mg tablet 10 mg PO DAILY RF: 0 furosemide 20 mg Tablet 20 mg PO BID RF: 0 azelastine 137 mcg (0.1 %) Aerosol,[place] 2 spray INTRANASAL BID RF: 0 lovastatin 20 mg Tablet 20 mg PO 1700 RF: 0 losartan 100 mg Tablet 100 mg PO DAILY RF: 0 potassium chloride 20 mEq Tablet Extended Release 20 meq PO DAILY RF: 0 aspirin 81 mg Tablet,Chewable 81 mg PO DAILY RF: 0 Discontinued amlodipine 5 mg Tablet 5 mg PO DAILY RF: 0 famotidine 20 mg Tablet 20 mg PO BID PRN (Reason: Heartburn) RF: 0 Discharge Orders: Discharge Order (Routine); Ordered 09/09/20 Ordered By: Lenny Zelaya Referrals: Prince Vázquez [Primary Care Provider] - 2 weeks ([facility] will be calling to schedule a hospital followup with Dr. Vázquez to be seen in 2 weeks. If you don't hear from them by tomorrow afternoon, please give them a call. Thank you) Discharge Diet: Regular and Cardiac Discharge Activity: Resume usual activity Patient Instructions: Amlodipine (By mouth), Pantoprazole (By mouth), Opioid Safety Activity Restrictions/Additional Instructions: Please continue take Protonix after discussed in detail for at least 2 weeks. Please try to avoid NSAIDs/ibuprofen. Please follow-up with your primary care provider within next 2 weeks. Discharge Attestations Time Spent in Discharge Care*: greater than 30 min Specific Discharge Activities: educating patient, discussing with caser in/social workers/dc planners, documenting/other paperwork and evaluating patient/reviewing data Status at Discharge: Cognitive status at discharge: cognitively intact, Behavioral status at discharge: cooperative, Functional status at discharge: independent ambulation Overall status at discharge: patient is back to baseline Quality Metrics Clinical Quality Measures During this hospital stay, did patient experience: None Coding Level of Care Code Acute Chg FW DC note Exam Comprehensive Diagnoses Atypical chest pain R07.89 HTN (hypertension) I10 Gastroduodenitis K29.90
[2020-09-09 17:44] LABS: H. Pylori IgG Antibody Negative (Negative)
--- NOTE | 2020-09-09 18:12 | NMCV_ITS ---
NM use perf SPECT r/s* [id number] Kayla Ibrahim Age: 75 Gender: F : 1945 Exam Date: 09/09/2020 18:12 Ordering Phys: Mateus Botello MD Technologist: JONEL Rodriguez Exam Location: [facility] Indications: Chest pain STRESS TEST [facility] IMAGE PROTOCOL Rest/Stress 1 Lexiscan Day Radiopharmaceutical Dose (mCi) Administration Site Administered by Rest: Tc-99m 7.8 IV JONEL Wilcox Sestamibi Stress:Tc-99m 33.0 IV JONEL Rodriguez Sestamiedmundo Rest: 09-Sep-2020 60 Discovery 630 Stress: 09-Sep-2020 45 Discovery 630 0.4mg Lexiscan. Supine position only as patient was unable to lay prone. SPECT RESULTS Technical Quality: Good Raw Data Analysis: Breast attenuation Image Corrections: Patient motion artifact - partial motion correction applied to stress images. Summed Stress Score: 0 Summed Rest Score: 0 Summed Difference Score: 0 PERFUSION FINDINGS SPECT images demonstrate homogeneous tracer distribution throughout the myocardium. FUNCTIONAL RESULTS (calculated via Gated SPECT) Stress Image LV EF (%): 90 Stress EDV (mL):52 TID: 0.78 Stress ESV (mL):5 Rest Image LV EF (%): 90 FUNCTIONAL FINDINGS: There is normal left ventricular systolic function. IMPRESSIONS Myocardial perfusion imaging is normal and low probability for obstructive coronary artery disease. EKG segment will be documented separately. Era Paula MD (Electronically Signed) Final Date: 09 September 2020 15:43 S
== END 2020-09-09 18:30 | disposition home or self-care (01) | DRG 313 ==
PROVIDERS: Internal Medicine; Admitting Provider Internal Medicine; PCP Family Medicine; Visit Provider Student in an Organized Health Care Education/Training Program
DX: R07.89 Other chest pain (principal); I10 Essential (primary) hypertension; E66.09 Other obesity due to excess calories; Z68.33 Body mass index [BMI] 33.0-33.9, adult; Z86.73 Personal history of transient ischemic attack (TIA), and cerebral infarction without residual deficits; I25.10 Atherosclerotic heart disease of native coronary artery without angina pectoris; Z86.010 Personal history of colon polyps; Z87.891 Personal history of nicotine dependence; I16.0 Hypertensive urgency; K29.90 Gastroduodenitis, unspecified, without bleeding; Z79.82 Long term (current) use of aspirin
CPT/HCPCS: 36415; 71275; 78452; 80048; 80053; 84443; 84484; 85025; 86677; 93005; 93017; 93306; 96372; A9500; G0378; G0379; J0360; J1650; J2785; Q9967

== ENCOUNTER → 2020-11-12 14:24 | Outpatient (BNVA) | payer MEDICARE, OTHER, SELFPAY | PROVIDERS: PCP Family Medicine; Visit Provider Urology | DX: N28.1 Cyst of kidney, acquired (principal) | CPT/HCPCS: 81003 ==

== ENCOUNTER → 2021-02-24 10:52 | Outpatient (BNVA) | payer MEDICARE, OTHER, SELFPAY | PROVIDERS: PCP Family Medicine; Referring Provider Nurse Practitioner Family; Visit Provider Specialist | DX: M16.12 Unilateral primary osteoarthritis, left hip (principal); M25.552 Pain in left hip | CPT/HCPCS: 73502 ==

== ENCOUNTER → 2021-02-27 11:16 | Outpatient (BNVA) | payer MEDICARE, OTHER, SELFPAY | PROVIDERS: PCP Family Medicine; Visit Provider Specialist | DX: M16.12 Unilateral primary osteoarthritis, left hip (principal) | CPT/HCPCS: 87635 ==

== ENCOUNTER 2021-03-04 12:13 | Observation (INO) | payer MEDICARE, OTHER, SELFPAY ==
[2021-02-27 09:20] VITALS: BMI 32.2
--- NOTE | 2021-02-27 09:34 | ECG_ITS ---
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 Measurements Intervals [place] Rate: 57 P: 59 OK: 148 QRS: 16 QRSD: 89 T: 60 QT: 449 QTc: 438 Interpretive Statements SINUS BRADYCARDIA LOW QRS VOLTAGE IN PRECORDIAL LEADS [QRS DEFLECTION < 1.0 mV IN CHEST LEADS] Compared to ECG 09/07/2020 17:46:04 Low QRS voltage now present ST (T wave) deviation now present Myocardial infarct finding now present Sinus rhythm no longer present Short OK interval no longer present Electronically Signed On 03-01-2021 21:41:08 CDT by Teja Duque M.D. [id number]
[2021-02-27 09:50] LABS: Basophils % 0.7 %; Eosinophils % 0.9 %; Hematocrit 44.4 % (37.0-47.0); Hemoglobin 14.3 g/dL (11.5-15.3); Lymphocytes # 1.3 10^3/uL (0.8-4.8); Lymphocytes % 27.5 %; Mean Corpuscular HGB Conc 32.2 g/dL (30.0-36.0); Mean Corpuscular Volume 90.1 fl (81-99); Mean Platelet Volume 11.9 fL (7.4-10.4); Monocytes # 1.5 10^3/uL (0.2-0.9); Neutrophils # 1.56 10^3/uL (1.8-7.7); Neutrophils % 33.9 %; Nucleated Red Blood Cells % 0 %; Platelet Count 125 10^3/cmm (130-400); Red Blood Count 4.93 10^6/uL (4.1-5.3); Red Cell Distribution Width 12.7 % (12.1-15.1); White Blood Count 4.6 10^3/uL (4.0-10.0)
--- NOTE | 2021-02-27 09:59 | ANES.PREANE2 ---
Pre-Anesthetic Assessment Pre-Anesthetic Assessment: Height/Weight: Height 1.52 m Weight 74.843 kg Proposed Procedure: Operation Date: 03/04/21 09:10 Proposed Procedures p Total Hip Arthroplasty 19558 M19.91(Left) - Kimberly Sagastume MD Was Beta Aaliyah taken within 24 hours: Yes Was Clonidine taken within 24 hours: N/A Social: Social History: No alcohol and No tobacco (h/o smoking) Exam: Pre-Anes Outpt Exam: alert, oriented x 3 and clear to auscultation bilaterally Additional Exam Findings (including area of procedure): Lyle (beta blkr) Airway: Submandibular: WNL Cervical ROM: WNL MP: 2 Dentition: False Pulmonary: Pulmonary: COPD CV/HEM: CV/HEM: HTN Metabolic: Metabolic: Hyperlipidemia and Morbid obesity Neuropsych: Neuropsych: CVA Anesthetic Plan: ASA status: 3 Anesthesia: Regional (specify below) (SAB) Risk of > 500 ml blood loss (7ml/kg in children): Yes, adequate IV access and fluids planned PFSH Anesthesia PFSH: Medical History Abnormal colonoscopy 3 benign polyps Atypical chest pain CAD (coronary artery disease) CVA (cerebral vascular accident) Cyst of right kidney HTN (hypertension) Obesity Surgical History H/O: hysterectomy Hip joint replacement status Family History Mother , AT AGE 74 HEART TROUBLE Diabetes CAD (coronary artery disease) Brother Diabetes CAD (coronary artery disease) Father , AT AGE 68 BRAIN Cancer Social History Smoking and tobacco status: never smoked Alcohol intake: never Lives independently: Yes Marital status: Legally Current occupational status: retired Data Anesthesia CBC & Chem 7: 02/27/21 09:36 02/27/21 09:36 Other Labs: Laboratory Results - last 48 hr 02/27/21 09:36 WBC 4.6 RBC 4.93 Hgb 14.3 Hct 44.4 MCV 90.1 MCH 29.0 MCHC 32.2 RDW 12.7 Plt Count 125 L MPV 11.9 H Neut % (Auto) 33.9 Lymph % (Auto) 27.5 [place] % (Auto) 32.0 Eos % (Auto) 0.9 Baso % (Auto) 0.7 Neut # (Auto) 1.56 L Lymph # (Auto) 1.3 [place] # (Auto) 1.5 H Eos # (Auto) 0.0 Baso # (Auto) 0.0 Nucleated RBC % (auto) 0 Nucleated RBCs # 0.0 Cardiac Studies: No Data to Display
[2021-02-27 10:08] LABS: Anion Gap 15.9 (5-19); Blood Urea Nitrogen 25 mg/dL (8-23); Calcium 9.9 mg/dL (8.5-10.5); Carbon Dioxide 26 mmol/L (22-29); Chloride 102 mmol/L (98-107); Glucose 101 mg/dL (65-115); Osmolality Calculated 293 mOsm/kg (285-295); Potassium 4.9 mmol/L (3.5-5.1); Sodium 139 mmol/L (136-145)
[2021-02-27 10:26] LABS: Alanine Aminotransferase 10 U/L (0-33); Albumin Level 4.3 g/dL (3.5-5.2); Alkaline Phosphatase 99 IU/L (35-105); Aspartate Amino Transferase 15 U/L (0-32); Total Bilirubin 0.5 mg/dL (0.15-1.2); Total Protein 7.3 g/dL (6.6-8.7)
[2021-02-27 11:59] LABS: Add Urine Microscopic? NO; Charge for UA Resulting for Rev
[2021-02-27 12:17] LABS: Bilirubin Urine Neg (Negative); Blood Urine Neg (Negative); Glucose Urine UA Norm (Normal); Ketones Urine Negative (Negative); Nitrate Urine Negative (Negative); Protein Urine Neg (Negative); Specific Gravity, Urine 1.005 (1.005-1.030); Urine Appearance Clear (CLEAR); Urine Color Yellow (Yellow); pH Urine 6 (5-7)
[2021-02-27 12:18] LABS: Leukocyte Esterase Urine Negative (Negative); Urobilinogen Urine Norm (Negative)
[2021-03-04] VITALS (21 sets, daily range): BP systolic 107–168; BP diastolic 52–88; PULSE 47–89; RESP 15–18; TEMP 36.2–37; O2SAT 91–100; BMI 32.2
[2021-03-04] MEDS: sodium chloride 0.9% 1,000 ML 30 ML IV (08:09)
[2021-03-04] MEDS: acetaminophen 1,000 MG/100 ML PIGGYBACK 400 MG IV ×3 (08:10→23:31)
[2021-03-04] MEDS: CELEcoxib 100 mg Capsule 400 MG PO (08:10)
[2021-03-04] MEDS: vancomycin 1,000 MG in sodium chloride 0.9% 250 ML 250 MG IV (08:31)
--- NOTE | 2021-03-04 09:30 | P.ANESUD_ITS ---
Pre-Anesthetic Update Pre-Anesthetic Assessment: Date of Surgery/Procedure: 03/04/21 Preop Herlinda gnosis: Primary osteoarthritis left hip Proposed Procedure: Operation Date: 03/04/21 09:10 Proposed Procedures p Total Hip Arthroplasty 47593 M19.91(Left) - Kimberly Sagastume MD Any changes to Pre-Anesthetic Assessment?: No Last Intake: Intake Last Liquid Date 03/03/21 Last Liquid Time 21:00 Last Solid Date 03/03/21 Last Solid Time 17:30 Vitals: Temperature 98.1 F 03/04/21 07:49 Temperature Source Temporal Artery S can 03/04/21 07:49 Pulse Rate 63 03/04/21 07:49 Respiratory Rate 16 03/04/21 07:49 Blood Pressure 168/88 03/04/21 07:49 Blood Pressure Ashlie n 114 03/04/21 07:49 Pulse Oximetry 94 03/04/21 07:49 Oxygen Delivery Me thod 03/04/21 07:59 Exam: Pre-Anes Outpt Exam: alert, oriented x 3, clear to auscultation bilaterally and regular rate & rhythm Cardiac Studies: No Data to Display
--- NOTE | 2021-03-04 09:40 | W.PM.OPSUD ---
Surgery/Procedure H&P Update DATE OF PROCEDURE: March 04, 2021 DATE H&P PERFORMED: 02/24/21 H&P UPDATE INFORMATION: I have reviewed H&P completed within last 30 days, I have examined patient prior to procedure, No changes to prior documentation and H&P is in [facility] on date indicated PREOP DIAGNOSIS: Primary osteoarthritis left hip PLANNED PROCEDURE: Operation Date: 03/04/21 09:10 Proposed Procedures p Total Hip Arthroplasty 39529 M19.91(Left) - Kimberly Sagastume MD Related Problem List Diagnoses (1) Primary osteoarthritis of left hip:
[2021-03-04] MEDS: vancomycin 1,000 MG SDV 1000 MG IRRIGATION (11:49)
[2021-03-04] MEDS: vancomycin 1,000 MG SDV 1000 MG XX (11:50)
--- NOTE | 2021-03-04 12:34 | P.OP_ITS ---
Operative Report Date of procedure: March 04, 2021 Pre-op Diagnosis: Primary osteoarthritis left hip Post-op diagnosis: same Post-op Findings: Severe degenerative osteoarthritis left hip Procedure Done: Left total hip arthroplasty Implants: The Ignacio total hip system with the following implants: A 52 mm by E Trident II solid back acetabular shell, an MDM cementless liner 42 mm inner diameter by E alpha code and Accolade II size 6 with 127 degree neck angle hip stem with a 28 mm outer diameter +0 mm neck offset and a adventism X3 insert size 28 mm inner diameter by 42E Specimens removed/disposition: None Pathology: none sent Surgeon: Kimberly Sagastume Plastic Eye Technician: [employer] [facility] operating room technicians Anesthesia: MAC (With spinal, ASA 3) Estimated blood loss (mL): 150 IV fluids (mL): 750 Urine output (mL): 250 Complications: None Findings: Leg lengths appeared equal at the conclusion of the case. The hip was stable at 90 degrees of flexion with 80 degrees of internal rotation and 20 degrees of adduction. Condition: stable Disposition: PACU (Then to floor for postoperative rehabilitation and pain management) Brief History: This 76-year-old woman presented to my clinic complaining of significant left hip pain. She has a history of left hip pain that has progressed to constant over the last 6 weeks. She states the more she walks the greater the pain becomes. She states the pain wakes her up at night. She goes up and downstairs deprecating fashion. She had a right hip replacement 2009 in [place]. She did well from this. Risks and complications are discussed with the patient regarding total hip arthroplasty. To this discussion, the patient wished to proceed with total hip arthroplasty. Consents were signed and questions were answered. Procedure: Patient was brought to the operating theater. She was transferred to the operat ing room table and subsequently administered a spinal anesthesia with MAC, ASA 3. Following administration of adequate anesthesia, the patient was placed in full lateral position and held in position with a pegboard. The patient's left lower extremity was then prepped and draped in usual fashion utilizing DuraPrep. It was draped free. Following prepping and draping a surgical pause was performed. At the time of surgical pause, we identified the site and side of surgery. We also identified the patient and preoperative surgical markings. Confirmation was made of equipment availability. Additionally, the patient's preoperative IV antibiotic, vancomycin 1 g, was confirmed as being given in a timely fashion and being the appropriate antibiotic. She received TXA 1 g preoperatively as well. Following the surgical pause, an incision was made centering over the patient's greater trochanter continuing proximally and distally as necessary to allow access to the hip joint. Dissection continued through skin and soft tissues using a scalpel, and hemostasis was obtained using electrocautery. The tensor fascia scott was identified and incised longitudinally. Sciatic nerve was identified and protected throughout the surgical procedure. A Charnley U retractor was placed after the tensor fascia scott had been incised longitudinally, and the sciatic nerve had been identified. The piriformis muscle was identified and tagged. Piriformis muscle along with the remaining short external rotators were then incised from the posterior aspect of the hip joint. These were retracted posteriorly. The capsule was entered in a T-type fashion with the edges being tagged. The hip was then dislocated. Following hip dislocation, a femoral neck osteotomy was accomplished in the appropriate posit ion. We then evaluated the acetabulum. The femur was retracted anteriorly. Soft tissues were retracted and the labrum was removed. We then began reaming. We reamed to 51 mm to allow for a size 52 m m acetabular shell. The acetabular component was impacted into position. It was noted that the acetabulum matched the bony anatomy. The cup was noted to seat nicely and had good fixation upon impact. The MDM cementless liner was impacted into position and care was taken to assure that it completely seated. Also, we confirmed that the acetabular insert was completely seated prior to addressing t he femur. Attention was directed to the proximal femur. The proximal femur was lifted out of the wound. A canal finder was passed, and we then used the reamer to lateralize. We then began broaching. We broached sequentially and had excellent fit and fill with the size 6 Accolade II 127 degree femoral component. A trial reduction was accomplished initially with a -2.7 mm offset femoral head and subsequently with a +0 mm offset femoral head once the size 6 broach was placed in position. The patient was stable with this construct, and it was not felt that we had increased her leg length. With this in place, we had the above stabilities, and at that time, we felt that we had restored leg lengths. We also felt that we had excellent stability noted above. Therefore, trial components were removed after the hip was dislocated. The size 6 Accolade II 127 degree neck angle hip stem was impacted into position without difficulty and onto this was placed a +0 mm offset by 28 mm outer diameter femoral head inside of the MDM size 42E insert with a 28 mm inner diameter. With this construct, we had the above-noted stability. The stem was noted to seat nicely prior to placement of the femoral head. The wound was copiously irrigated with Betadine. At this time, with all components in appropriate position, the hip was reduced. Following reduction of the prosthesis once again, we confirmed the stability of the hip. Leg lengths were also felt to be satisfactory. Being satisfied with the prosthesis, attention was directed to closure. Closure was accomplished with 0 Vicryl in the capsular tissues. Piriformis was reattached with 0 Vicryl as well. Tensor fascia scott was closed with 0 Vicryl in an interrupted fashion. The subcutaneous tissues were closed with a deep layer of 0 Vicryl followed by 2-0 Monocryl. Vancomycin powder and a Gelfoam thrombin mixture was placed into the wound as well. The skin was closed with a running 3-0 Monocryl followed by Dermabond, Prineo, and OpSite. The patient was placed in an abduction pillow. She was returned the Recovery Room in a satisfactory condition and will be discharged to the floor for postoperative rehabilitation and pain management. There were no complications. Associated Problem List Diagnoses (1) Primary osteoarthritis of left hip:
--- NOTE | 2021-03-04 12:41 | XR_ITS ---
WS: [id number] XR pelvis 1-2V* [id number] REASON FOR EXAM: S/P ZOË Lt FINDINGS: Total left hip arthroplasty. Components of the prosthesis are in proper position and alignment. No bony abnormality. No soft tissue abnormality. XR/XR pelvis 1-2V* [id number] IMPRESSION: Total left hip arthroplasty without abnormality.
--- NOTE | 2021-03-04 12:57 | SUR.PHASEI ---
PT AWAKES TO VOICE, GOOD RESP NOTED LT HIP DRESSING D/I FIRST ICE TO SITE DISTAL LT FOOT WITH STRONG REGULAR PULSE NOTED AND MARKED HENNESSY TO DD STATLOCK TO RT THIGH YELLOW URINE NOTED TO TUBING AND BAG. IV PATENT PT NOW ON 3LNC SATS 965
[2021-03-04] MEDS: amlodipine 5 mg Tablet PO (13:59)
[2021-03-04] MEDS: oxyCODONE 5 mg IR Tab/Cap PO ×2 (13:59→19:36)
[2021-03-04] MEDS: aspirin 325 mg EC Tablet PO (13:59)
[2021-03-04] MEDS: losartan 50 mg Tablet 100 MG PO (13:59)
[2021-03-04] MEDS: pantoprazole DR 40 mg Tablet PO (14:00)
[2021-03-04] MEDS: potassium chloride ER 20 mEq Tablet PO (14:00)
[2021-03-04] MEDS: FUROsemide 20 mg Tablet PO (14:00)
[2021-03-04] MEDS: multivitamin therapeutic Tablet 1 TAB PO (14:00)
[2021-03-04] MEDS: chlorhexidine gluconate 0.12% Btl 473 mL 30 ML MUCOUS MEM ×2 (17:07→20:16)
[2021-03-04] MEDS: calcium carbonate 500 mg Chew Tablet 1000 MG PO (17:09)
[2021-03-04] MEDS: mupirocin oint 22 gm 1 APPLIC NASAL (17:09)
[2021-03-04] MEDS: sennosides-docusate Tablet 2 TAB PO (17:09)
[2021-03-04] MEDS: iron polysaccharide complex 150 mg Capsule PO (17:10)
[2021-03-04] MEDS: atorvastatin 40 mg Tablet 20 MG PO (17:10)
[2021-03-04] MEDS: fexofenadine 60 mg Tablet PO (17:37)
--- NOTE | 2021-03-04 18:37 | P.PCN_ITS ---
PACU note Post-Anesthesia Exam: awake Disposition: discharged
--- NOTE | 2021-03-04 18:37 | PM.PACU ---
PACU note Post-Anesthesia Exam: awake Disposition: discharged
[2021-03-04] MEDS: CELEcoxib 100 mg Capsule 200 MG PO (20:16)
[2021-03-05 00:20] VITALS: BP 131/72; PULSE 71; RESP 17; TEMP 37; O2SAT 91
[2021-03-05 03:17] LABS: Basophils % 0.2 %; Eosinophils # 0.1 10^3/uL (0.0-0.8); Eosinophils % 1.3 %; Hematocrit 35.5 % (37.0-47.0); Hemoglobin 10.9 g/dL (11.5-15.3); Lymphocytes % 19.2 %; Mean Corpuscular HGB Conc 30.7 g/dL (30.0-36.0); Mean Corpuscular Hemoglobin 29.1 pg (28.0-34.0); Mean Corpuscular Volume 94.7 fl (81-99); Mean Platelet Volume 11.9 fL (7.4-10.4); Monocytes # 1.8 10^3/uL (0.2-0.9); Monocytes % 33.8 %; Neutrophils # 2.25 10^3/uL (1.8-7.7); Neutrophils % 43.4 %; Nucleated Red Blood Cells % 0 %; Platelet Count 101 10^3/cmm (130-400); Red Blood Count 3.75 10^6/uL (4.1-5.3); White Blood Count 5.2 10^3/uL (4.0-10.0)
[2021-03-05 03:40] LABS: Anion Gap 14.2 (5-19); Blood Urea Nitrogen 16 mg/dL (8-23); Calcium 8.8 mg/dL (8.5-10.5); Carbon Dioxide 23 mmol/L (22-29); Chloride 102 mmol/L (98-107); Glucose 109 mg/dL (65-115); Osmolality Calculated 282 mOsm/kg (285-295); Potassium 4.2 mmol/L (3.5-5.1); Sodium 135 mmol/L (136-145)
[2021-03-05 04:10] VITALS: BP 131/74; PULSE 83; RESP 17; TEMP 37.1; O2SAT 90
[2021-03-05] MEDS: ondansetron 2 mg/ML SDV 2 mL 4 MG IVP (07:39)
[2021-03-05] MEDS: acetaminophen 1,000 MG/100 ML PIGGYBACK 400 MG IV (07:59)
[2021-03-05 08:00] VITALS: BP 154/76; PULSE 97; RESP 16; TEMP 37.7; O2SAT 91
[2021-03-05] MEDS: losartan 50 mg Tablet 100 MG PO (08:00)
[2021-03-05] MEDS: sennosides-docusate Tablet 2 TAB PO (08:00)
[2021-03-05] MEDS: vancomycin 1,000 MG in sodium chloride 0.9% 250 ML 250 MG IV (08:00)
[2021-03-05] MEDS: allopurinol 100 mg Tablet PO (08:01)
[2021-03-05] MEDS: pantoprazole DR 40 mg Tablet PO (08:01)
[2021-03-05] MEDS: calcium carbonate 500 mg Chew Tablet 1000 MG PO (08:01)
[2021-03-05] MEDS: aspirin 325 mg EC Tablet PO (08:01)
[2021-03-05 08:02] VITALS: RESP 16
[2021-03-05] MEDS: iron polysaccharide complex 150 mg Capsule PO (08:02)
[2021-03-05] MEDS: FUROsemide 20 mg Tablet PO (08:02)
[2021-03-05] MEDS: amlodipine 5 mg Tablet PO (08:02)
[2021-03-05] MEDS: potassium chloride ER 20 mEq Tablet PO (08:02)
[2021-03-05] MEDS: multivitamin therapeutic Tablet 1 TAB PO (08:02)
[2021-03-05] MEDS: oxyCODONE 5 mg IR Tab/Cap PO (08:02)
[2021-03-05] MEDS: fexofenadine 60 mg Tablet PO (08:02)
[2021-03-05] MEDS: CELEcoxib 100 mg Capsule 200 MG PO (08:03)
[2021-03-05] MEDS: mupirocin oint 22 gm 1 APPLIC NASAL (08:03)
[2021-03-05] MEDS: chlorhexidine gluconate 0.12% Btl 473 mL 30 ML MUCOUS MEM ×2 (08:03→12:53)
[2021-03-05] MEDS: cholecalciferol (vitamin D3) 1,000 unit Tablet 1000 UNIT PO (08:09)
--- NOTE | 2021-03-05 09:43 | PC.CHAP ---
Pastoral Care Encounter/Spiritual Assessment Type of Contact [] Declined final tester visit [] Patient/Family/Request visit [] Outpatient visit [] Follow-up visit [] Physician referral [] Code/Alert [x] Routine visit [] Staff referral [] Actively dying [] Patient sleeping [] Family support [] [] Out of room [] Palliative care [] [] Receiving care in room [] Pre-surgical visit [] Trauma [] Long length of stay [] ICU visit [] Other: Relational/Emotional Strength [x] Patient feels connected with others/family/visitors/staff [] Distress [] Loneliness/isolation [] Abandonment Spirituality of Patient [x] Person of Lucille [x] Attends Rastafarian of their Lucille [x] Believes in Prayer [] Reads Bible or Confucianism materials [] There are Spiritual issues to be addressed Ground Surveillance Systems Operator Interventions [x] Prayer [x Active listening [x] Non-anxious presence [] Spiritual/emotional support [] Crisis/trauma care [] Spiritual counseling [] Bereavement support [] Provided bereavement packet [] Provided Bible/devotional materials [] Provided toy/stuffed animal, coloring book to patient or family member [] Provided Communion [] Anointing/[place] [] Salvation [x] Completed spiritual assessment [] Other: Impact on Illness or Injury [] Angry [] Fearful [] Anxious [] Often cries [] Exhaustion [] Unable to work [] Unable to attend faith [] Unable to walk/stand [] Unable to read [] Unable to drive [] Unable to eat/drink [] Unable to sleep [] Unable to be with family [] Patient intubated [] Other: Summary patient doing good today Time spent with patient 15 min
[2021-03-05 12:00] VITALS: BP 110/71; PULSE 82; RESP 14; TEMP 36.9; O2SAT 91
--- NOTE | 2021-03-05 14:13 | P.DS_ITS ---
Discharge Providers Date of Admission: 03/04/21 12:13 Date of Discharge: March 05, 2021 Attending Provider at Admission: Kimberly Sagastume MD Attending Provider at Discharge: Kimberly Sagastume MD Primary Care Provider: Prince Vázquez Diagnoses at Discharge Discharge Diagnosis (1) Primary osteoarthritis of left hip: Status: Acute (2) S/P total left hip arthroplasty: Status: Acute Permanent problem details: The Taylor total hip system with the following implants: A 52 mm by E Trident II solid back acetabular shell, an MDM cementless liner 42 mm inner diameter by E alpha code and Accolade II size 6 with 127 degree neck angle hip stem with a 28 mm outer diameter +0 mm neck offset and a latter-day X3 insert size 28 mm inner diameter by 42E Reason for Visit Reason for Visit: total hip Hospital Course Hospital Course The patient came to the hospital on yesterday, March 04, 2021. She underwent same-day surgery for left total hip arthroplasty. The surgery was uneventful and the patient tolerated it well. Postoperatively, the patient was sent to the floor for postoperative rehabilitation and pain management. She was sent to the floor under observation status. She worked with physical therapy. Today, on the first postoperative day, the patient was comfortable being discharged to home. She was independent in transfers and and ambulation. There was no ev idence of DVT. Her dressing was dry and intact. The patient will be discharged home with home health. She does have good family support. Physical Exam Const: COMMON NORMALS: no acute distress, average body habitus, patient oriented x3 and alert GENERAL APPEARANCE: cooperative and comfortable ORIENTATION/CONSCIOUSNESS: Yes awake HENMT: COMMON NORMALS: normocephalic and atraumatic HEAD & SCALP: normocephalic and atraumatic Eye: GENERAL EYE: appearance normal, both eyes and all related structures Chest: COMMONS NORMALS: normal inspection of the chest Resp: COMMON NORMALS: normal respiratory effort EFFORT & INSPECTION: Yes able to speak in complete sentences and Yes symmetric chest movement Extremity: LEFT LOWER EXTREMITY: Yes hip joint Left hip: Yes inspection ( Dressing is dry and intact.), Yes palpation (Minimal to no tenderness to palpation.), Yes ROM (Not evaluated.) and Yes neurovascular exam (Intact distally.) Neuro: COMMON NORMALS: patient oriented x3 SENSORIUM/ORIENTATION: Yes alert Psych: COMMON NORMALS: mental status grossly normal APPEARANCE: Yes grossly normal ATTITUDE: Yes calm and Yes engaged ATTENTION/CONCENTRATION: Yes attention grossly intact Skin: COMMON NORMALS: no rashes or lesions noted GENERAL SKIN EXAM: no rashes or lesions noted Urinary Catheter Management^: Bran: Cath Placed During This Visit: yes, but has since been removed by the nurse Reason for Continuing Indwelling Catheter: Decision to DC Catheter Urinary Catheter Date of Insertion: 03/04/21 Urinary Catheter Time of Insertion: 10:12 Date Urinary Catheter Removed: 03/05/21 Time Urinary Catheter Discontinued: 06:08 Discharge Data Data Completed and Pending: Completed Studies During Hospitalization Category Date Time Status XR pelvis 1-2V* 7 2170 Routine Exams 03/04/21 12:41 Completed Labs from last 24 hours 03/05/21 03/05/21 02:30 02:30 WBC 5.2 RBC 3.75 L Hgb 10.9 L Hct 35.5 L MCV 94.7 MCH 29.1 MCHC 30.7 RDW 13.0 Plt Count 101 L MPV 11.9 H Neut % (Auto) 43.4 Lymph % (Auto) 19.2 [place] % (Auto) 33.8 Eos % (Auto) 1.3 Baso % (Auto) 0.2 Neut # (Auto) 2.25 Lymph # (Auto) 1.0 [place] # (Auto) 1.8 H Eos # (Auto) 0.1 Baso # (Auto) 0.0 Nucleated RBC % (a uto) 0 Nucleated RBCs # 0.0 Sodium 135 L Potassium 4.2 Chloride 102 Carbon Dioxide 23 Anion Gap 14.2 BUN 16 Creatinine 0.8 GFR Calculation Not Reportable Glucose 109 Calculated Osmolal ity 282 L Calcium 8.8 Vitals: Last Vital Signs Temp 98.4 F 03/05/21 12:00 Pulse 82 03/05/21 12:00 Resp 14 03/05/21 12:00 BP 110/71 03/05/21 12:00 Pulse Ox 91 03/05/21 12:00 Discharge Plan Discharge Patient Disposition: Home Health Service Condition: Stable Prescriptions: New acetaminophen 500 mg Tablet 1,000 mg PO Q8H 15 Days Qty: 0 RF: 0 aspirin 325 mg Tablet,Delayed Release (Dr/Ec) 325 mg PO DAILY 30 Days Qty: 30 RF: 0 celecoxib 100 mg Capsule 200 mg PO DAILY Qty: 30 RF: 0 oxycodone 5 mg Tablet 5 mg PO Q4H PRN (Reason: Moderate Pain) 7 Days Qty: 30 RF: 0 Continued amlodipine 5 mg tablet 5 mg PO DAILY RF: 0 diphenhydramine HCl [Benadryl] 25 mg capsule 25 mg PO Q6H PRN (Reason: Allergic Reaction) RF: 0 fexofenadine 60 mg tablet 60 mg PO BID RF: 0 levocetirizine 5 mg tablet 5 mg PO DAILY RF: 0 propranolol 60 mg Capsule,Extended Release 24 Hr 60 mg PO DAILY RF: 0 allopurinol 100 mg Tablet 100 mg PO DAILY RF: 0 azelastine 137 mcg (0.1 %) Aerosol,[place] 2 spray INTRANASAL BID RF: 0 lovastatin 20 mg Tablet 20 mg PO 1700 RF: 0 losartan 100 mg Tablet 100 mg PO DAILY RF: 0 potassium chloride 20 mEq Tablet Extended Release 20 meq PO DAILY RF: 0 pantoprazole 40 mg Tablet,Delayed Release (Dr/Ec) 40 mg PO DAILY Qty: 30 RF: 0 furosemide 20 mg tablet 20 mg PO DAILY RF: 0 Held aspirin 81 mg Tablet,Chewable 81 mg PO DAILY RF: 0 Hold Instructions: Resume on 04/03/21. Take 325 mg aspirin for 30 days then may resume 81 mg aspirin. Discharge Orders: Discharge Order (Routine); Ordered 03/05/21 Ordered By: Kimberly Sagastume Other Ambulatory Orders: DME: Walker (Order) Location: None Selected Ordered By: Kimberly Sagastume Referrals: [facility] [place] [Outside] [facility] [place] [facility] Home Care ([facility]) [Outside] Kimberly Sagastume MD [Physician] - 03/19/21 1:45 pm Discharge Diet: Advance as tolerated and Usual diet Discharge Activity: Increase activity as tolerated, Limit activity as instructed and Use walker/crutches as instructed Patient Instructions: Acetaminophen (By mouth), Aspirin (By mouth), Oxycodone, Rapid Release (By mouth), Celecoxib (By mouth), Total Hip Replacement (DC), Opioid Safety Activity Restrictions/Additional Instructions: Ice to left hip. Maintain current dressing, and remove it if it peels up. Gait training, ambulation, and strengthening per physical therapy. Posterior hip precautions. Discharge Attestations Time Spent in Discharge Care*: greater than 30 min Specific Discharge Activities: educating patient, discussing with rehabilitation case coordinator/social workers/dc planners, documenting/other paperwork and evaluating patient/reviewing data Status at Discharge: Cognitive status at discharge: cognitively intact , Behavioral status at discharge: cooperative , Quality Metrics Clinical Quality Measures During this hospital stay, did patient experience: None Coding Level of Care Code Acute Chg FW DC note Exam Comprehensive Diagnoses Primary osteoarthritis of left hip M16.12 S/P total left hip arthroplasty Z96.642
[2021-03-05 15:23] VITALS: BP 110/71; PULSE 82; RESP 14; TEMP 36.9; O2SAT 91
--- NOTE | 2021-03-07 09:24 | PC.SOCIAL ---
discharge follow up call, spoke with patient. patient picked up new prescriptions from the pharmacy,she is taking as directed. patient pain is under control. is aware to hold aspirin until 04-03, then resume taking 81 mg, taking 325 at this time. patient is using walker. had PT come out yesterday, she tolerated therapy well. patient is aware of follow up appointment on 03-[address] geronimo. patient is using ice on hip for comfort and swelling. will leave dressing in place until follow up with dr. geronimo. patient denies any concerns.
== END 2021-03-05 15:24 | disposition home health service (06) ==
LOC: MEDSURG 12:13
PROVIDERS: Anesthesiology; Admitting Provider Specialist; PCP Family Medicine; Visit Provider Specialist
PROC: (CPT 27130; principal; 2021-03-04 08:50)
DX: M16.12 Unilateral primary osteoarthritis, left hip (principal); J44.9 Chronic obstructive pulmonary disease, unspecified; I10 Essential (primary) hypertension; E78.5 Hyperlipidemia, unspecified; E66.01 Morbid (severe) obesity due to excess calories; Z68.32 Body mass index [BMI] 32.0-32.9, adult; Z86.73 Personal history of transient ischemic attack (TIA), and cerebral infarction without residual deficits; I25.10 Atherosclerotic heart disease of native coronary artery without angina pectoris; Z82.49 Family history of ischemic heart disease and other diseases of the circulatory system; Z83.3 Family history of diabetes mellitus; Z79.82 Long term (current) use of aspirin
CPT/HCPCS: 27130; 36415; 51702; 72170; 80048; 80053; 81003; 85025; 93005; 96365; 97116; 97161; 97165; 97530; C1776; G0378; J2370; J2405; J2704; J3010; J3370; J7030; J7050

== ENCOUNTER 2021-03-10 12:30 | Emergency (ER) | payer MEDICARE, OTHER, SELFPAY ==
[2021-03-10] VITALS (7 sets, daily range): BP systolic 146–191; BP diastolic 64–90; PULSE 63–70; RESP 16–20; TEMP 36.9–37; O2SAT 88–95; BMI 31.2
--- NOTE | 2021-03-10 12:47 | USCV_ITS ---
Kayla Ibrahim Age: 76 Gender: F : 1945 Exam Date: 03/10/2021 12:58 Ordering Phys: Erwin Wolf Technologist: Lissette Wen Exam Location: [facility] [place] Indication: POST OP LEFT HIP HISTORY: Lower extremity pain. PROCEDURES: Venous duplex imaging was performed in only the left lower extremity. The following venous structures were evaluated: common femoral vein, profunda vein, proximal portion of the greater saphenous vein, superficial femoral vein, and the popliteal vein. In addition, the posterior tibial and peroneal trunk were evaluated. FINDINGS: Normal 2-D Doppler and augmentation and compressibility throughout the lower extremity venous structures. Additional imaging through the proximal calf veins also reveals no thrombus. Limited evaluation of the greater saphenous vein is patent with no thrombus.. CONCLUSIONS No evidence of left lower extremity DVT. Abimael Adler MD (Electronically Signed) Final Date: 10 March 2021 15:47 S
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
[2021-03-10] MEDS: ipratropium-albuterol 3 mL Neb 6 ML INHALATION (13:15)
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
--- NOTE | 2021-03-10 15:01 | CTR_ITS ---
PROCEDURE INFORMATION: Exam: CTA Chest With Contrast Exam date and time: 03/10/2021 3:01 PM Age: 76 years old Clinical indication: Shortness of breath; Additional info: SOB, o2 90-92% on ra, 6 days post op left hip replacement surgery TECHNIQUE: Imaging protocol: Computed tomographic angiography of the chest with contrast. 3D rendering (Not supervised by radiologist): MIP and/or 3D reconstructed images were created by the technologist. Radiation optimization: All CT scans at this facility use at least one of these dose optimization techniques: automated exposure control; mA and/or kV adjustment per patient size (includes targeted exams where dose is matched to clinical indication); or iterative reconstruction. Contrast material: OMNI 350; Contrast volume: 71 ml; Contrast route: INTRAVENOUS (IV); COMPARISON: CT angio chest [id number] 09/07/2020 10:14 AM RADIATION DOSE METRICS: Total DLP (mGy-cm): 538.49 FINDINGS: Pulmonary arteries: Main pulmonary artery normal in caliber. Aorta: No aortic aneurysm or dissection. Other arteries: Extensive atherosclerotic calcification. Lungs: Emphysema. Mild reticulonodular interstitial thickening within the posterior segment of the left upper lobe and bilateral lower lobes, new/increased from prior. Diffuse mild bronchial wall thickening with scattered fluid/debris within the lower lobes. The central airways are patent. No focal consolidation. Focal nonocclusive clot within anterior segment of the right upper lobe (image 190 series 2). Focal nonocclusive clot posterior segment right lower lobe (image 264 series 2). Focal nonocclusive clot lateral segment right middle lobe (image 261 series 2). Pleural spaces: Unremarkable. No pneumothorax. No pleural effusion. Heart: Heart normal in size. RV/LV ratio of 1.0. Lymph nodes: Unremarkable. No enlarged lymph nodes. Kidneys and ureters: Limited imaging of the upper abdomen reveals hypodense renal cysts, partially included. Bones/joints: Metallic shrapnel incidentally noted at the level the spinous processes of T8/9. Soft tissues: Unremarkable. CT/CT angio chest PE protcl [id number] IMPRESSION: 1. There are a few small nonocclusive pulmonary emboli noted within right upper, middle, and lower lobes. Main pulmonary artery normal in caliber. Borderline RV/LV ratio of 1.0. 2. Reticulonodular interstitial pattern with bronchial wall thickening and scattered fluid/debris in the lower lobes, consistent with nonspecific infectious or inflammatory airways process, with underlying emphysema. No lobar consolidation. COMMENTS: Consistent with the [employer]'s Incidental Findings Committee white paper (J Am Jerad Radiol 2018): Any incidental renal lesion less than 1 cm or classified as too small to characterize, or any incidental cystic renal lesion characterized as simple-appearing, is likely benign. No follow-up imaging is recommended for these lesions per consensus recommendations based on imaging criteria. Radiation Dose CTDIVOL = (mGy): DLP = 538.49 (mGy-cm)
[2021-03-10] MEDS: iohexol 350 mg/mL 100 mL Btl IV (15:25)
[2021-03-10 15:47] LABS: Basophils # 0.1 10^3/uL (0.0-0.1); Basophils % 0.7 %; Eosinophils # 0.1 10^3/uL (0.0-0.8); Eosinophils % 1.3 %; Hematocrit 34.2 % (37.0-47.0); Hemoglobin 10.5 g/dL (11.5-15.3); Lymphocytes # 1.5 10^3/uL (0.8-4.8); Lymphocytes % 20.2 %; Mean Corpuscular HGB Conc 30.7 g/dL (30.0-36.0); Mean Corpuscular Hemoglobin 28.5 pg (28.0-34.0); Mean Corpuscular Volume 92.7 fl (81-99); Mean Platelet Volume 11.3 fL (7.4-10.4); Monocytes % 26.3 %; Neutrophils # 2.94 10^3/uL (1.8-7.7); Neutrophils % 39.4 %; Nucleated Red Blood Cells % 0.5 %; Platelet Count 199 10^3/cmm (130-400); Red Blood Count 3.69 10^6/uL (4.1-5.3); Red Cell Distribution Width 13.6 % (12.1-15.1); White Blood Count 7.5 10^3/uL (4.0-10.0)
[2021-03-10 16:20] LABS: Alanine Aminotransferase 13 U/L (0-33); Albumin Level 3.6 g/dL (3.5-5.2); Alkaline Phosphatase 85 IU/L (35-105); Anion Gap 16.5 (5-19); Aspartate Amino Transferase 18 U/L (0-32); Blood Urea Nitrogen 15 mg/dL (8-23); Calcium 9.5 mg/dL (8.5-10.5); Carbon Dioxide 26 mmol/L (22-29); Chloride 98 mmol/L (98-107); Globulin 3.5 g/dL (1.3-4.6); Glucose 90 mg/dL (65-115); Osmolality Calculated 282 mOsm/kg (285-295); Potassium 4.5 mmol/L (3.5-5.1); Sodium 136 mmol/L (136-145); Total Bilirubin 0.6 mg/dL (0.15-1.2); Total Protein 7.1 g/dL (6.6-8.7)
[2021-03-10 16:41] LABS: Slide Review Slide Review Perform
[2021-03-10] MEDS: enoxaparin 120 mg/0.8 mL Syringe 110 MG SUBCUT (16:54)
== END 2021-03-10 16:55 | disposition home or self-care (01) ==
PROVIDERS: Emergency Provider Physician Assistant; PCP Family Medicine
DX: M79.605 Pain in left leg (principal); I26.99 Other pulmonary embolism without acute cor pulmonale; Z79.82 Long term (current) use of aspirin; I25.10 Atherosclerotic heart disease of native coronary artery without angina pectoris; Z86.73 Personal history of transient ischemic attack (TIA), and cerebral infarction without residual deficits; I10 Essential (primary) hypertension; Z96.642 Presence of left artificial hip joint
CPT/HCPCS: 71045; 71275; 80053; 85025; 93971; 94640; 96372; 99283; J1650; Q9967

== ENCOUNTER → 2021-03-19 13:50 | Outpatient (BNVA) | payer MEDICARE, OTHER, SELFPAY | PROVIDERS: PCP Family Medicine; Visit Provider Specialist | DX: Z96.642 Presence of left artificial hip joint (principal) | CPT/HCPCS: 73502 ==

== ENCOUNTER → 2021-04-28 13:48 | Outpatient (BNVA) | payer MEDICARE, OTHER, SELFPAY | PROVIDERS: PCP Family Medicine; Visit Provider Specialist | DX: Z96.642 Presence of left artificial hip joint (principal) | CPT/HCPCS: 73502 ==

== ENCOUNTER → 2021-07-14 09:32 | Outpatient (BNVA) | payer MEDICARE, OTHER, SELFPAY | PROVIDERS: PCP Family Medicine; Visit Provider Specialist | DX: Z47.1 Aftercare following joint replacement surgery (principal); Z96.642 Presence of left artificial hip joint | CPT/HCPCS: 73502 ==

== ENCOUNTER → 2022-02-11 10:03 | Outpatient (BNVA) | payer MEDICARE, OTHER, SELFPAY | PROVIDERS: PCP Family Medicine; Referring Provider Nurse Practitioner Family; Visit Provider Specialist | DX: S63.652A Sprain of metacarpophalangeal joint of right middle finger, initial encounter (principal); X58.XXXA Exposure to other specified factors, initial encounter | CPT/HCPCS: 73130; 99213 ==

== ENCOUNTER → 2022-02-24 11:23 | Outpatient (BNVA) | payer MEDICARE, OTHER, SELFPAY | PROVIDERS: PCP Family Medicine; Referring Provider Specialist; Visit Provider Student in an Organized Health Care Education/Training Program | DX: S63.651A Sprain of metacarpophalangeal joint of left index finger, initial encounter (principal); X58.XXXA Exposure to other specified factors, initial encounter | CPT/HCPCS: 99203 ==

== ENCOUNTER 2022-03-18 | Outpatient (CLI) | payer MEDICARE, OTHER, SELFPAY ==
--- NOTE | 2022-03-25 15:15 | MR_ITS ---
WS: [id number] MRI RIGHT HAND without CONTRAST. COMPARISON: Radiograph RIGHT hand 02/11/2022 Multiplanar, multisequence imaging is performed without contrast. Moderate osteoarthritic changes at the first carpometacarpal joint. There are multiple small cysts wi thin the carpal bones. Normal appearance of the carpal arcs. No acute fractures or bone destruction i s evident. The interphalangeal joint spaces are narrowed and there are small osteophytes at the DIP a nd PIP joints. The intraosseous muscles and the flexor digitorum tendons appear in tact. There is a very small amoun t of increased T2 signal surrounding the proximal second metacarpal. This increased signal is in the region of the adductor pollicis brevis muscle. Very minimal amount of increased T2 signal. There is a very small amount of incompletely visualized fluid in the distal radial ulnar joint.
== END 2022-03-18 23:00 | disposition home or self-care (01) ==
LOC: RAD 03-23 21:49
PROVIDERS: PCP Family Medicine; Visit Provider Student in an Organized Health Care Education/Training Program
DX: S63.659A Sprain of metacarpophalangeal joint of unspecified finger, initial encounter (principal); X58.XXXA Exposure to other specified factors, initial encounter
CPT/HCPCS: 99213

== ENCOUNTER → 2022-03-18 14:30 | Outpatient (BNVA) | payer MEDICARE, OTHER, SELFPAY | PROVIDERS: PCP Family Medicine; Visit Provider Specialist | DX: Z96.642 Presence of left artificial hip joint (principal); M79.652 Pain in left thigh | CPT/HCPCS: 73502 ==

== ENCOUNTER 2022-03-25 10:32 | Outpatient (CLI) | payer MEDICARE, OTHER, SELFPAY ==
--- NOTE | 2022-03-25 13:48 | MR_ITS ---
WS: [id number] MRI RIGHT HAND without CONTRAST. COMPARISON: Radiograph RIGHT hand 02/11/2022 Multiplanar, multisequence imaging is performed without contrast. Moderate osteoarthritic changes at the first carpometacarpal joint. There are multiple small cysts wi thin the carpal bones. Normal appearance of the carpal arcs. No acute fractures or bone destruction i s evident. The interphalangeal joint spaces are narrowed and there are small osteophytes at the DIP a nd PIP joints. The intraosseous muscles and the flexor digitorum tendons appear in tact. There is a very small amoun t of increased T2 signal surrounding the proximal second metacarpal. This increased signal is in the region of the adductor pollicis brevis muscle. Very minimal amount of increased T2 signal. There is a very small amount of incompletely visualized fluid in the distal radial ulnar joint. MR/MR hand RT wo con* [id number] IMPRESSION: 1. Moderate osteoarthritic changes throughout the wrist and hand. 2. Increase fluid focally in the abductor pollicis brevis muscle adjacent to t he proximal second metacarpal. May indicate a small tear from a recent injury.
== END 2022-03-25 10:33 | disposition home or self-care (01) ==
LOC: RADOUTREAD 04-01 10:35 → RAD 04-01 12:41
PROVIDERS: PCP Family Medicine; Visit Provider Specialist
DX: S69.91XA Unspecified injury of right wrist, hand and finger(s), initial encounter (principal); X58.XXXA Exposure to other specified factors, initial encounter
CPT/HCPCS: 73218

== ENCOUNTER → 2022-04-02 13:49 | Outpatient (BNVA) | payer MEDICARE, OTHER, SELFPAY | PROVIDERS: PCP Family Medicine; Visit Provider Student in an Organized Health Care Education/Training Program | DX: S63.652A Sprain of metacarpophalangeal joint of right middle finger, initial encounter (principal); X58.XXXA Exposure to other specified factors, initial encounter | CPT/HCPCS: 99214 ==

== ENCOUNTER 2022-04-13 14:51 | Outpatient (CLI) | payer MEDICARE, OTHER, SELFPAY ==
--- NOTE | 2022-04-13 | MR_ITS ---
WS: [id number] INDICATION: Increased soft tissue pain post arthroplasty TECHNIQUE: Coronal T1, coronal STIR, sagittal T2, sagittal T1, axial coronal and sagittal post gadoli nium imaging with fat saturation technique. FINDINGS: Prior postoperative changes bilateral THAs. Susceptibility artifact degrades some images. H ardware appears in good position. No evidence of drainable abscess or fluid collection. Susceptibilit y artifact in the hip and thigh soft tissues. Bone marrow signal in the sacrum appears normal. No sac ral insufficiency fractures. Normal bone marrow signal in the lower lumbar spine. Normal visualized p ubic rami. Sigmoid diverticulosis. No other suspicious findings. MR/MR hip LT wo/w con [id number] IMPRESSION: 1. Postoperative changes bilateral THAs with susceptibility artifact. 2. No evidence of drainable abscess or fluid collection. Susceptibility artifa ct in the hip and thigh soft tissues which are otherwise normal in appearance. 3. Normal bone marrow signal in the sacrum. No acute sacral insufficiency frac tures. 4. No other suspicious findings. 5. Sigmoid diverticulosis.
[2022-04-13] MEDS: gadobenate dimeglumine 20 mL vial IV (15:27)
== END 2022-04-13 14:52 | disposition home or self-care (01) ==
LOC: RAD 14:56
PROVIDERS: PCP Family Medicine; Visit Provider Specialist
DX: Z98.890 Other specified postprocedural states (principal); Z96.642 Presence of left artificial hip joint; K57.30 Diverticulosis of large intestine without perforation or abscess without bleeding
CPT/HCPCS: 73723; A9577

== ENCOUNTER 2022-04-29 07:56 | Day surgery (SDC) | payer MEDICARE, OTHER, SELFPAY ==
[2022-04-28 12:31] VITALS: BMI 32.8
--- NOTE | 2022-04-29 | XR_ITS ---
WS: [id number] EXAMINATION: XR finger RT min 2V [id number] REASON FOR EXAM: Right middle finger sagittal band rupture/REPAIR COMPARISON: 02/11/2022 ORDER DATE: 04/29/2022 12:00 AM FINDINGS: There is no sign of any acute osseous or articular abnormality. There are no specific soft tissue abn ormalities. Difficulty with positioning. XR/XR finger RT min 2V [id number] IMPRESSION: No definite abnormality noted.
[2022-04-29 08:09] VITALS: BP 189/88; PULSE 78; RESP 16; TEMP 36.6; O2SAT 93
[2022-04-29] MEDS: acetaminophen 1,000 MG/100 ML PIGGYBACK 400 MG IV (08:46)
[2022-04-29] MEDS: ketorolac 30 mg/mL INJ IVP (08:48)
[2022-04-29] MEDS: sodium chloride 0.9% 1,000 ML 30 ML IV (08:48)
--- NOTE | 2022-04-29 09:46 | P.ANESASSM_ITS ---
Pre-Anesthetic Assessment Height/Weight: Height 1.52 m Weight 76.204 kg Temp Pulse Resp BP Pulse Ox O2 Del Method 97.9 F 78 16 189/88 93 Nasal Cannula 04/29/22 08:09 04/29/22 08:09 04/29/22 08:09 04/29/22 08:09 04/29/22 08:09 04/29/22 08:38 Preop Diagnosis: Right middle finger sagittal band rupture and radial collateral ligament ru Operation Date: 04/29/22 09:55 Proposed Procedures p Right middle sagital band reconstruction :[id number]?,S63.659A(Right) - Elpidio Wolf DO Familial anesthetic complications: none Was Beta Aaliyah taken within 24 hours: Yes Was Clonidine taken within 24 hours: N/A Last intake: Intake Last Liquid Date 04/28/22 Last Liquid Time 21:00 Last Solid Date 04/28/22 Last Solid Time 18:00 Social No alcohol and No tobacco Exam alert, oriented x 3, clear to auscultation bilaterally and regular rate & rhythm Airway Submandibular: within normal limits Cervical ROM: within normal limits Mallampati: Class II Dentition: false CV/HEM Coronary Artery Disease, Hypertension and Peripheral Vascular Disease GI Gastroesophageal Reflux Disease Metabolic Hyperlipidemia and Morbid Obesity [facility] [place] Osteoarthritis/DJD Anesthetic Plan ASA status: 3 Anesthesia: MAC Medications/Allergies Home Medications Medication Instructions Recorded Confirmed Last Taken Type allopurinol 100 mg tablet 100 mg PO DAILY 09/07/20 04/28/22 04/28/22 History azelastine 137 mcg (0.1 %) nasal 2 spray intranasal BID 09/07/20 04/28/22 04/28/22 History spray aerosol losartan 100 mg tablet 100 mg PO DAILY 09/07/20 04/28/22 04/28/22 History lovastatin 20 mg tablet 20 mg PO 1700 09/07/20 04/28/22 04/28/22 History potassium chloride 20 mEq 20 meq PO DAILY 09/07/20 04/28/22 04/28/22 History tablet,extended release propranolol 60 mg capsule,24 60 mg PO DAILY 09/07/20 04/28/22 04/28/22 History hr,extended release pantoprazole 40 mg tablet,delayed 40 mg PO DAILY #30 tabs 09/09/20 04/28/22 04/28/22 Rx release amlodipine 5 mg tablet 5 mg PO BEDTIME 11/12/20 04/28/22 04/28/22 History furosemide 20 mg tablet 20 mg PO DAILY 11/12/20 04/28/22 04/28/22 History albuterol sulfate 90 mcg/actuation 2 inh inhalation Q6H PRN shortness 03/10/21 04/28/22 04/29/22 Rx aerosol inhaler of breath or wheezing #8.5 grams aspirin 325 mg tablet 325 mg PO DAILY 04/28/21 04/28/22 04/20/22 History primidone 50 mg tablet 25 mg PO BEDTIME 04/28/22 04/28/22 04/28/22 History Allergies Allergy/AdvReac Type Severity Reaction Status Date / Time Penicillins Allergy ALGY-Difficulty Verified 04/29/22 08:27 Breathing prednisone Allergy ALGY-Difficulty Verified 04/29/22 08:28 Breathing triamcinolone [From Nasacort] Allergy ALGY-Rash Verified 04/29/22 08:27 Current Medications Generic Name Dose Route Start Last Admin Trade Name Freq PRN Reason Stop Dose Admin Sodium Chloride 1,000 mls @ 30 mls/hr 04/29/22 08:45 04/29/22 08:48 Sodium Chloride 0.9% IV 04/30/22 08:44 30 mls/hr .Q24H JOSH Administration PFSH Anesthesia Medical History Abnormal colonoscopy 3 benign polyps Atypical chest pain CAD (coronary artery disease) CVA (cerebral vascular accident) Cyst of right kidney HTN (hypertension) Obesity Pulmonary embolism Sagittal band rupture at metacarpophalangeal joint Surgical History H/O: hysterectomy Hip joint replacement status Family History Mother , AT AGE 74 HEART TROUBLE Diabetes CAD (coronary artery disease) Brother Diabetes CAD (coronary artery disease) Father , AT AGE 68 BRAIN Cancer Social History Alcohol intake: never Lives independently: Yes Marital status: Legally Current occupational status: retired Data Anesthesia Cardiac Studies: Echocardiogram Ultrasound 09/07/20 Sestamibi Stress Test (Cardiology) 09/09
--- NOTE | 2022-04-29 10:28 | W.PM.OPSUD ---
Surgery/Procedure H&P Update DATE OF PROCEDURE: April 29, 2022 DATE H&P PERFORMED: 04/02/22 CHANGES TO PREVIOUS DOCUMENTATION: None. Patient has seen her physician managing her tremors and they are significantly more controlled and has a very discrete examination and preoperative. She definitely has a noticeable subluxation consistent with a sagittal band rupture. On stressing of her radial collateral this appears to be much more intact as there is no tremors. Minimal laxity noted. At this standpoint we had a detailed discussion about our consent as well as her planned procedure. At this point time my plan is for a right middle finger sagittal band reconstruction and possible radial collateral ligament reconstruction if necessary. Patient will undergo local anesthesia. My plan will be to stress the collateral under fluoroscopic imaging. At that point time we will proceed with the right middle finger radial sagittal band reconstruction. At that point time patient be awake we will have her make a fist flex and extend and if her finger tracks appropriately and stays centralized then her stress exam of the collateral is negative this will be all that she needs to have done. But I do have her consented if we find where she still has excessive ulnar deviation or any residual laxity that we can do a MP joint radial collateral ligament reconstruction. PREOP DIAGNOSIS: Right middle finger sagittal band rupture, chronic PRIMARY INDICATION FOR PROCEDURE: Right middle finger sagittal band rupture, chronic with possible MP radial collateral ligament injury PLANNED PROCEDURE: Operation Date: 04/29/22 09:55 Proposed Procedures p Right middle sagital band reconstruction :[id number]?,S63.659A(Right) - Elpidio Wolf, DO
[2022-04-29] MEDS: clindamycin 600 MG/50 ML PREMIX 100 MG IV (10:35)
[2022-04-29 12:40] VITALS: BP 174/82; PULSE 68; RESP 14; TEMP 36.5; O2SAT 95
--- NOTE | 2022-04-29 12:50 | PM.OP2 ---
Brief Operative Note Date of procedure: 05/03/22 Pre-op diagnosis: Right middle finger radial sagittal band injury Post-op diagnosis: same Procedure Done: Right middle finger radial sagittal band reconstruction Surgeon: Elpidio Wolf Estimated blood loss (mL): 10 Complications: None Post-op Plan: Patient dressing on in place clean dry and intact splint in place keeping MP in extension. She will start up with OT hand therapy next week. Patient will be nonweightbearing to the right hand. Patient received appropriate discharge traction as well as pain medication postoperatively. Patient will follow-up with me in the office in 2 weeks. Patient understands agrees with current plan. All questions answered. 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
--- NOTE | 2022-04-29 12:51 | P.OP_ITS ---
Operative Report Date of procedure: April 29, 2022 Pre-op diagnosis: Preop Diagnosis Right middle finger sagittal band rupture, chronic Post-op diagnosis: Same Post-op findings: See operative report narrative Procedure done: Right middle finger radial sagittal band reconstruction Right middle finger radial collateral ligament stress examination under anesthesia with fluoroscopic mini C arm Implants: Arthrex 2-0 & 4-0 FiberWire Surgeon: Elpidio Wolf DO Estimated blood loss: 10mL 33 IV fluids: See anesthesia record Complications: None Findings: See operative report narrative Condition: stable Disposition: same day Brief History: Patient was seen evaluated in the outpatient setting. Patient had findings consistent with a right middle finger radial sagittal band injury however she did have questionable findings of possible radial collateral injury given patien t's excessive ulnar deviation at rest. MRI was performed and inconclusive of any of these injuries however she continued to have deformity. On physical examination her findings were more consistent with a sagittal band injury. Reviewing her physical exam as well as her inconclusive MRI we talked about her treatment options in the outpatient setting. We talked about continuing nonoperative treatment and then as far as right middle finger exploration with radial sagittal band reconstruction and possible radial collateral ligament repair versus reconstruction. Talked about risk benefits complication alternatives to surgical treatment options. She understands her risks with surgery but at this point time this affects her daily living and gets caught on multiple things and she would like this taken care of. Understanding the risks and through shared decision making she agrees to proceed with surgery. All questions answered at this time. In the preoperative holding area she was seen and evaluated in her tremors that she had at baseline on her initial examination medications have been adjusted with her physician and her tremors are much more can trolled in a better examination. Preoperatively her radial collateral appears to be intact and her exam is much more consistent with a radial sagittal band injury. Her finger snaps when going from flexion to extension starting with ulnar deviation and flexion and in extension she is able to hold her finger up straight but she needs assistance when going from flexion to extension. We talked about our plans for surgery and we will stress the radial collateral ligament of the MP joint to the right middle finger prior to further surgical intervention and then exploration of the sagittal band. Understanding these risks and plan for surgery she agrees to proceed. We will perform this procedure under local anesthesia to allow for patient to actively range to confirm appropriate centralization of the extensor tendon of the right middle finger. Patient understands agrees to proceed with current plan. All questions answered. Procedure: Patient was seen evaluate in the preoperative holding area. Consent was reviewed and signed with patient. The correct extremity was then marked. Patient was seen evaluated by the anesthesia department once cleared for surgery she was taken back to the operative suite. Patient then subsequently transported to the OR table. All bony prominences well-padded and the right upper extremity was placed on an arm table. A nonsterile tourniquet was applied to the right upper arm. Patient then underwent light anesthesia for the beginning part of the procedure and will be woken up for examination once sagittal bands been reconstructed. This point in time the right upper extremity was then prepped and draped in standard orthopedic fashion. She received appropriate preoperative antibiotics. Final timeout performed. Patient then underwent local anesthesia to the right middle finger. Prior to surgical intervention mini C arm was then brought in and the MP joint was stressed under anesthesia. I stressed the radial and ulnar collateral ligaments which were robustly stable in both extension as well as 90 degrees of flexion there was no radial collateral injury or joint space opening consistent with a stable radial collateral ligament. Once appropriately anesthetized an Esmarch tourniquet was used exsanguinate the right upper extremity and tourniquet was insufflated to 250 mmHg. A standard curvilinear incision was then made curving around the radial aspect of the right middle finger on the dorsal aspect of the MP joint with centering over the MP joint. Total incision length was roughly 6 cm in length. Sharp scalpel incision was made through skin and subcutaneous tissue. I then utilized bipolar electrocautery to maintain exact hemostasis. I switched to dissection scissors to to spread longitudinally in planes of the cutaneous nerve branches which were protected throughout this case and then subsequently identified the extensor mechanism over the MP joint. It was longitudinally making a ulnar sided dista lly based tendon harvest. Clearly evident on my dissection the patient's extensor tendon was on the ulnar aspect of the MP joint consistent with a chronic radial sagittal band injury. At this point time this has been scarred on the ulnar aspect and I subsequently needed to release the ulnar sagittal band to help mobilize the adhered extensor mechanism over the MP joint. I used 15 blade to release the ulnar sagittal band. I then utilized scalpel as well as dissection scissors to mobilize the extensor mechanism. At this point then I subsequently made an incision through the attenuated radial sagittal band to allow for imbrication for repair to augment my sagittal band reconstruction. Once appropriately mobilized I then split the extensor tendon to the right middle finger creating a distally based ulnar-sided extensor tendon slip which was then Pulvertaft weaved through the radial aspect of the extensor tendon that was left intact. 2 horizontal mattress sutures were then placed with 2-0 FiberWire suture. This anchored the distally based tendon reconstruction to allow for no further propagation distally. Once this was done I carried my dissection over to the intermetacarpal ligament. I then lassoed the extensor tendon slip around the intermetacarpal ligament and then subsequently Pulvertaft weaved the tendon back upon itself and sutured this into place with 2?oh Arthrex FiberWire suture. The excess of the tendon was then sutured onto itself along the residual radial side of the extensor tendon. This had excellent fixation. At this point time the patient was awakened from anesthesia and patient was asked to make a fist and straighten her fingers. She was able to make a smooth flexion to extension moment with no ulnar deviation the tendon was appropriately centralized with no further snapping or triggering. At this point time I imbricated the attenuated sagittal band on the radial side using a pants over vest suture stitch. The excess of the sagittal band was then excised with sharp scalpel excision. I then took the 2-0 FiberWire suture and placed a stitch repairing the ulnar sagittal band to keep an appropriate checkrein and centralization of the extensor tendon. Patient was then again asked to make a fist and straighten and tendon remains centralized and satisfactory right middle finger radial sagittal band reconstruction was performed. This point time tourniquet was deflated. Wound bed was thoroughly irrigated. Hemostasis was satisfactory with bipolar electrocautery. Incision was then closed in layered fashion with interrupted 3-0 Vicryl suture and nylon interrupted mattress suture. Dressings were then placed with Xeroform 4 x 4's Curlex and an AlumaFoam splint to place the MP joint in full extension allowing for PIP and DIP flexion at the right middle finger. Patient was awake from anesthesia and she was taken back to PACU in stable condition. Patient tolerated procedure without complications. Disposition: Patient taken to PACU in stable condition recovering well. Dressing on in place clean dry and intact she received appropriate discharge instruction as well as pain medication postoperatively. We will give patient i nto our OT hand therapy program for right middle finger radial sagittal band reconstruction rehab protocol. Patient understands and agrees with current plan. All questions answered. She will see me in the office in 2 weeks.
--- NOTE | 2022-04-29 12:51 | PM.PACU ---
PACU note Narrative: Patient recovering well in PACU. Patient's pain well controlled. Dressing on in place clean dry and intact. Decreased sensation secondary to local anesthesia. Fingertips warm well perfused. Exam: awake Disposition: discharged
[2022-04-29 12:53] VITALS: BP 172/78; PULSE 66; RESP 16; TEMP 36.8; O2SAT 96
[2022-04-29 13:15] VITALS: BP 160/94; PULSE 66; RESP 18; TEMP 36.8; O2SAT 95
--- NOTE | 2022-04-29 13:51 | ANE.PACU2 ---
Inpatient post-anesthesia follow up: Airway intact: Yes Vital signs: Temperature 98.2 F Pulse Rate 66 Respiratory Rate 18 Blood Pressure 160/94 Pulse Oximetry 95 Oxygen Delivery Me thod Room Air Oxygen Flow Rate Fraction of Inspir ed Oxygen Hydration adequate: Yes Nausea and vomiting: No Pain level: 1 Mental status: Baseline
== END 2022-04-29 13:44 | disposition home or self-care (01) ==
PROVIDERS: PCP Family Medicine; Visit Provider Student in an Organized Health Care Education/Training Program
PROC: (CPT 26437; principal; 2022-04-29 09:45)
DX: S63.652A Sprain of metacarpophalangeal joint of right middle finger, initial encounter (principal); X58.XXXA Exposure to other specified factors, initial encounter; I25.10 Atherosclerotic heart disease of native coronary artery without angina pectoris; I10 Essential (primary) hypertension; K21.9 Gastro-esophageal reflux disease without esophagitis; E78.5 Hyperlipidemia, unspecified; E66.01 Morbid (severe) obesity due to excess calories; Z68.32 Body mass index [BMI] 32.0-32.9, adult; Z86.711 Personal history of pulmonary embolism; Z86.73 Personal history of transient ischemic attack (TIA), and cerebral infarction without residual deficits; Z79.82 Long term (current) use of aspirin
CPT/HCPCS: 26437; 73140; 76000; J0131; J1885; J2250; J2704; J2795; J3010; J3490; J7030

== ENCOUNTER → 2022-05-04 13:02 | Outpatient (BNVA) | payer MEDICARE, OTHER, SELFPAY | PROVIDERS: PCP Family Medicine; Visit Provider Specialist | DX: M25.552 Pain in left hip (principal); M79.652 Pain in left thigh; Z96.642 Presence of left artificial hip joint | CPT/HCPCS: 99213 ==

== ENCOUNTER 2022-05-07 14:55 | Outpatient (RCR) | payer MEDICARE, OTHER, SELFPAY | END 2022-05-23 23:59 | disposition home or self-care (01) | LOC: SOT 14:55 | PROVIDERS: PCP Family Medicine; Visit Provider Student in an Organized Health Care Education/Training Program | DX: S63.413 Traumatic rupture of collateral ligament of left middle finger at metacarpophalangeal and interphalangeal joint (principal); X58.XXXS Exposure to other specified factors, sequela | CPT/HCPCS: 97110; 97140; 97166; L3906 ==

== ENCOUNTER → 2022-05-12 10:22 | Outpatient (BNVA) | payer MEDICARE, OTHER, SELFPAY | PROVIDERS: PCP Family Medicine; Visit Provider Student in an Organized Health Care Education/Training Program | DX: S63.654A Sprain of metacarpophalangeal joint of right ring finger, initial encounter (principal); X58.XXXA Exposure to other specified factors, initial encounter | CPT/HCPCS: 99024 ==

== ENCOUNTER 2022-05-24 06:00 | Outpatient (RCR) | payer MEDICARE, OTHER, SELFPAY | END 2022-06-23 23:59 | disposition home or self-care (01) | LOC: SOT 06:00 | PROVIDERS: PCP Family Medicine; Visit Provider Student in an Organized Health Care Education/Training Program | DX: S63.412D Traumatic rupture of collateral ligament of right middle finger at metacarpophalangeal and interphalangeal joint, subsequent encounter (principal); X58.XXXD Exposure to other specified factors, subsequent encounter | CPT/HCPCS: 97018; 97022; 97110; 97140 ==

== ENCOUNTER 2022-06-24 06:00 | Outpatient (RCR) | payer MEDICARE, OTHER, SELFPAY | END 2022-07-16 12:15 | disposition home or self-care (01) | LOC: SOT 06:00 | PROVIDERS: PCP Family Medicine; Visit Provider Student in an Organized Health Care Education/Training Program | DX: Z47.89 Encounter for other orthopedic aftercare (principal) | CPT/HCPCS: 97018; 97110; 97140 ==

== ENCOUNTER 2022-07-07 12:43 | Outpatient (CLI) | payer MEDICARE, OTHER, SELFPAY ==
--- NOTE | 2022-07-07 13:00 | US_ITS ---
WS: [id number] ULTRASOUND SOFT TISSUES LEFT thigh. HISTORY: S/P total left hip arthroplasty/left thigh pain COMPARISON: None available. TECHNIQUE: 2-D and color Doppler imaging is submitted. Ultrasound is directed over the lateral LEFT thigh in the area of pain. Normal appearance of the soft tissues. There is no mass or fluid collection. US/US soft tissue/extremity [id number] IMPRESSION: Negative soft tissue ultrasound LEFT lateral thigh.
== END 2022-07-07 12:44 | disposition home or self-care (01) ==
LOC: RAD 12:43
PROVIDERS: PCP Family Medicine; Visit Provider Specialist
DX: M79.652 Pain in left thigh (principal); Z96.642 Presence of left artificial hip joint
CPT/HCPCS: 76882

== ENCOUNTER → 2022-07-24 15:26 | Outpatient (BNVA) | payer MEDICARE, OTHER, SELFPAY | PROVIDERS: PCP Family Medicine; Visit Provider Student in an Organized Health Care Education/Training Program | DX: S63.652A Sprain of metacarpophalangeal joint of right middle finger, initial encounter (principal); X58.XXXA Exposure to other specified factors, initial encounter | CPT/HCPCS: 99213 ==

== ENCOUNTER → 2022-12-29 14:12 | Outpatient (BNVA) | payer MEDICARE, OTHER, SELFPAY | PROVIDERS: PCP Family Medicine; Referring Provider Family Medicine; Visit Provider Dermatology | DX: D48.5 Neoplasm of uncertain behavior of skin (principal) | CPT/HCPCS: 11102; 11103; 17000; 17003; 99203 ==

== ENCOUNTER → 2023-01-18 09:50 | Outpatient (BNVA) | payer MEDICARE, OTHER, SELFPAY | PROVIDERS: PCP Family Medicine; Visit Provider Dermatology | DX: C44.612 Basal cell carcinoma of skin of right upper limb, including shoulder (principal); D04.62 Carcinoma in situ of skin of left upper limb, including shoulder | CPT/HCPCS: 12032; 17260; 17313; 17314 ==

== ENCOUNTER 2023-05-04 14:42 | Outpatient (CLI) | payer MEDICARE, OTHER, SELFPAY ==
--- NOTE | 2023-05-04 14:50 | MM_ITS ---
WS: [id number] DIAGNOSTIC BILATERAL DIGITAL BREAST TOMOSYNTHESIS MAMMOGRAPHY WITH CAD RIGHT breast ultrasound, limited HISTORY: RT BT TENDERNESS COMPARISON: 12/24/2016, 04/08/2020 TECHNIQUE: Bilateral craniocaudad, mediolateral oblique, and mediolateral views are submitted with to mosynthesis and SM. Computer aided detection utilized. Breast composition: There are scattered areas of fibroglandular density. Bilateral breast calcificati ons. There are also bilateral breast nodules and asymmetries which are stable. These are probably lym ph nodes. No new mass or architectural distortion. The RIGHT axilla is difficult to include mammograp hically. Ultrasound will be obtained. RIGHT breast ultrasound, limited Ultrasound is directed along the 9:00 axis towards the axilla in the area of pain. No abnormality is identified. IMPRESSION: MM/[place] [id number] BI-RADS: 2-Benign FOLLOW UP: 1 Year Follow-up
== END 2023-05-04 14:43 | disposition home or self-care (01) ==
LOC: RAD 14:43
PROVIDERS: PCP Family Medicine; Visit Provider Nurse Practitioner Family
DX: R59.0 Localized enlarged lymph nodes (principal); M79.621 Pain in right upper arm; Z12.31 Encounter for screening mammogram for malignant neoplasm of breast
CPT/HCPCS: 76642; 77062; G0279

== ENCOUNTER 2023-05-11 09:21 | Outpatient (CLI) | payer MEDICARE, OTHER, SELFPAY ==
--- NOTE | 2023-05-11 | ECG_ITS ---
[facility] Test Date: 2023-05-11 Pat Name: Kayla Mckeon Department: Room: Gender: Female Entry Level Management: : 1945 Requested By: Prince Vázquez Order Number: [id number] Chary MD: Bushra Mcclain M.D. Interpretive Statements NAME OF STUDY: LEXISCAN SESTAMIBI STRESS TEST INDICATION: Chest Pain PROCEDURE: At the baseline, the EKG revealed sinus bradycardia at a rate of 59 bpm. Low voltage complexes in the precordial leads. The baseline heart was 59 bpm with a blood pressue of 168/67 mm of Hg Lexiscan was infused over a period of 20 seconds. A total of 0.4 milligrams of Lexiscan was infused. The stress phase was continued for a total of 5 minutes. Heart rate at the end of the stress phase was 66 bpm with a blood pressure 149/66 mm of Hg. The EKG at the peak infusion revealed no significant changes. Sestamibi was injected 20 seconds after the Lexiscan infusion. Heart rate at the end of the recovery phase was 72 bpm with a blood pressure of 150/63 mm of Hg. CONCLUSION: 1. No significant EKG changes with the LexiScan infusion 2. No LexiScan induced chest pain or cardiac arrhythmia 3. Normal blood pressure and heart rate response 4. Sestamibi/sestamibi perfusion scan pending; see separate report. Electronically Signed On 05-24-2023 16:28:28 [employer] OPERATOR by Bushra Mcclain M.D. [id number]
[2023-05-11 09:33] VITALS: BMI 31.6
--- NOTE | 2023-05-11 09:40 | NMCV_ITS ---
NM sue perf SPECT r/s* [id number] aKyla Mckeon Age: 78 Gender: F : 1945 Exam Date: 05/11/2023 10:12 Ordering Phys: Prince Vázquez Technologist: JONEL Wilcox Exam Location: [facility] Indications: ATHEROSCLEROTIC HEART DISEASE STRESS TEST Please see separate stress test report in [facility] for full findings IMAGE PROTOCOL Rest/Stress 1 Lexiscan Day Radiopharmaceutical Dose (mCi) Administration Site Administered by Rest: Tc-99m 10.9 IV Vidya Pride, [employer]OR SUPERVISOR Sestamibi Stress:Tc-99m 32.9 IV Vidya Pride, [employer]ERN[employer]LOOR SUPERVISOR Sestamibi Rest: 11-May-2023 60 Discovery 630 Stress: 11-May-2023 30 Discovery 630 0.4mg Lexiscan.supine position only as patient was unable to lay prone. SPECT RESULTS Technical Quality: Excellent Raw Data Analysis: Normal Image Corrections: No attenuation or motion correction applied Summed Stress Score: 0 Summed Rest Score: 0 Summed Difference Score: 0 PERFUSION FINDINGS Fairly uniform myocardial tracer uptake with no significant perfusion abnormalities. However with the SPECT imaging there is a small area of reversible defect in the mid inferolateral region FUNCTIONAL RESULTS (calculated via Gated SPECT) Stress Image LV EF (%): 94 Stress EDV (mL):65 TID: 1.03 Stress ESV (mL):4 FUNCTIONAL FINDINGS: Segmental wall motion analysis revealing no gross wall motion abnormalities IMPRESSIONS 1. Myocardial perfusion imaging revealing a small area of inconsistent reversible defect in the mid inferolateral region suggesting ischemia in the distribution of the circumflex artery. However because of inconsistency, most likely it is artifactual. 2. Normal LV ejection fraction 94% 3. LV wall motion analysis revealing no gross wall motion abnormalities. 4. Normal LV volume Except for the inconsistent perfusion abnormality, there is no significant change from the previous study on 09/09/2020 Dr Bushra Mcclain MD [facility] (Electronically Signed) Final Date: 11 May 2023 20:19 S
[2023-05-11] MEDS: regadenoson 0.4 Mg/5 ml Syringe IVP (11:28)
[2023-05-11 11:52] VITALS: BP 168/87; PULSE 62
== END 2023-05-11 09:22 | disposition home or self-care (01) ==
PROVIDERS: PCP Nurse Practitioner Family; Visit Provider Family Medicine
DX: R07.9 Chest pain, unspecified (principal); I25.10 Atherosclerotic heart disease of native coronary artery without angina pectoris; R93.1 Abnormal findings on diagnostic imaging of heart and coronary circulation
CPT/HCPCS: 36415; 78452; 93017; 96374; A9500; J2785

== ENCOUNTER → 2023-07-14 13:14 | Outpatient (BNVA) | payer MEDICARE, OTHER, SELFPAY | PROVIDERS: PCP Nurse Practitioner Family; Referring Provider Nurse Practitioner Family; Visit Provider Internal Medicine | DX: R07.9 Chest pain, unspecified (principal); R06.09 Other forms of dyspnea; I10 Essential (primary) hypertension; R00.2 Palpitations; R00.1 Bradycardia, unspecified | CPT/HCPCS: 93005; 99204 ==

== ENCOUNTER 2023-07-20 11:54 | Outpatient (CLI) | payer MEDICARE, OTHER, SELFPAY ==
--- NOTE | 2023-07-20 12:15 | USCV_ITS ---
Kayla Mckeon Age: 78 Gender: F : 1945 Exam Date: 07/20/2023 12:00 Ordering Phys: Teja Duque M.D ([email or web address]) Technologist: Exam Location: [facility] [place] Indication: murmur BP: 135 / 78 HR: 0 Rhythm: Sinus Technical Quality: Adequate MEASUREMENTS (Male / Female) Normal Values 2D ECHO LV Diastolic Diameter PLAX 4.5 cm 4.2 - 5.9 / 3.9 - 5.3 cm IVS Diastolic Thickness 1.4 cm 0.6 - 1.0 / 0.6 - 0.9 cm IVS Systolic Thickness 1.5 cm LVPW Diastolic Thickness 1.1 cm 0.6 - 1.0 / 0.6 - 0.9 cm LVPW Systolic Thickness 1.6 cm LVOT Diameter 2.1 cm LV Ejection Fraction 2D Teich 66.9 % LV Ejection Fraction MOD 2C 60.8 % LV Ejection Fraction 2C AL 0.0 % LA Diameter 3.0 cm IVC Diameter 1.6 cm M-MODE LA Ao Ratio MM 1.2 AV Cusp Separation MM 2.5 cm DOPPLER AV Peak Velocity 143.0 cm/s LVOT Peak Velocity 122.0 cm/s AV Area Cont Eq vti 4.1 cm squared AV Area Cont Eq pk 2.9 cm squared MV Peak Velocity 94.0 cm/s MV Area PHT 3.6 cm squared Mitral E to A Ratio 1.0 TV Peak Velocity 277.0 cm/s TR Peak Velocity 281.0 cm/s TR Peak Gradient 31.6 mmHg TV Peak E Velocity 69.0 cm/s Right Atrial Pressure 3.0 mmHg Pulmonary Artery Systolic Pressu 34.6 mmHg PV Peak Velocity 88.0 cm/s FINDINGS Left Ventricle Left ventricle is normal in size. LV systolic function is normal with EF of 55 to 60%. No regional wall motion abnormalities are seen. Right Ventricle Normal in size and function. Right Atrium Normal in size Left Atrium Dilated Mitral Valve Structurally normal mitral valve. Mild mitral regurgitation. Aortic Valve Structurally normal aortic valve. No significant stenosis or regurgitation. Tricuspid Valve Mild tricuspid regurgitation. RVSP is 35 to 40 mmHg. This is consistent with mild pulmonary hypertension Pulmonic Valve Not well visualized Pericardium Normal Aorta Normal in size IVC Appears to be normal CONCLUSIONS LV systolic function is normal with EF of 55 to 60%. Left atrial dilation. Mild mitral regurgitation. Mild tricuspid regurgitation Mild pulmonary hypertension Compared to prior echocardiogram from 2020, patient now has mild mitral regurgitation. Teja Duque MD (Electronically Signed) Final Date: 26 July 2023 11:47 S
== END 2023-07-20 11:55 | disposition home or self-care (01) ==
LOC: RAD 11:54
PROVIDERS: PCP Nurse Practitioner Family; Visit Provider Internal Medicine
DX: I08.1 Rheumatic disorders of both mitral and tricuspid valves (principal); I27.20 Pulmonary hypertension, unspecified; R06.02 Shortness of breath
CPT/HCPCS: 93306

== ENCOUNTER → 2023-09-22 13:10 | Outpatient (BNVA) | payer MEDICARE, OTHER, SELFPAY | PROVIDERS: PCP Nurse Practitioner Family; Visit Provider Internal Medicine | DX: I10 Essential (primary) hypertension (principal); Z82.49 Family history of ischemic heart disease and other diseases of the circulatory system; R00.2 Palpitations; R06.09 Other forms of dyspnea; Z87.891 Personal history of nicotine dependence | CPT/HCPCS: 99214 ==

== ENCOUNTER 2023-10-01 11:06 | Outpatient (CLI) | payer MEDICARE, OTHER, SELFPAY ==
--- NOTE | 2023-10-01 11:15 | USCV_ITS ---
Kayla Mckeon Age: 78 Gender: F : 1945 Exam Date: 10/01/2023 11:14 Ordering Phys: Teja Duque M.D ([email or web address]) Technologist: GIANNI [place] [facility] [place]ication: AAA SCREENING FAMILY H/O AAA HISTORY: Diameter (cm) AP x Transverse x Length Velocity (cm/s) Waveform Prox Aorta: 2.10 x 2.00 x 80.70 Triphasic Mid Aorta: 2.10 x 2.00 x 48.50 Triphasic Distal Aorta: 2.50 x 2.70 x 4.70 73.00 Triphasic Right Iliac Prox: 0.90 x 0.90 x 131.40 Triphasic Left Iliac Prox: 0.80 x 0.80 x 144.50 Triphasic Stent Prox Landing x x Aneurysmal Sac Max x x Lt Lat Sac Dim Rt Lat Sac Dim Stent Dist Landing x x Right Iliac Stent x x Left Iliac Stent x x Right Renal Art Left Renal Art FINDINGS: Comparison: none available. Ectatic abdominal aorta with evidence of atherosclerotic plaque noted. Poor imaging technique. There is evidence of atherosclerotic plaque no significan stenosis in the right common iliac artery. There is evidence of atherosclerotic plaque no significan stenosis in the left common iliac artery. CONCLUSIONS Ectatic abdominal aorta with evidence of atherosclerotic plaque noted. Dr. Rosemary Cedeno DO (Electronically Signed) Final Date: 01 Oct 2023 12:16 S
== END 2023-10-01 11:07 | disposition home or self-care (01) ==
LOC: RAD 11:06
PROVIDERS: PCP Nurse Practitioner Family; Visit Provider Internal Medicine
DX: Z82.49 Family history of ischemic heart disease and other diseases of the circulatory system (principal); I77.811 Abdominal aortic ectasia; I70.0 Atherosclerosis of aorta
CPT/HCPCS: 76706

== ENCOUNTER → 2023-11-18 14:12 | Outpatient (BNVA) | payer MEDICARE, OTHER, SELFPAY | PROVIDERS: PCP Nurse Practitioner Family; Visit Provider Nurse Practitioner Family | DX: L57.0 Actinic keratosis (principal); L82.0 Inflamed seborrheic keratosis; L57.8 Other skin changes due to chronic exposure to nonionizing radiation; Z85.828 Personal history of other malignant neoplasm of skin | CPT/HCPCS: 17000; 17110; 99213 ==

== ENCOUNTER → 2025-01-23 10:59 | Outpatient (BNVA) | payer MEDICARE, OTHER, SELFPAY | PROVIDERS: PCP Nurse Practitioner Family; Referring Provider Registered Nurse; Visit Provider Specialist | DX: G25.0 Essential tremor (principal); G24.3 Spasmodic torticollis | CPT/HCPCS: 99204 ==

== ENCOUNTER → 2025-03-22 10:01 | Outpatient (BNVA) | payer MEDICARE, OTHER, SELFPAY | PROVIDERS: PCP Nurse Practitioner Family; Visit Provider Specialist | DX: G24.3 Spasmodic torticollis (principal); G25.0 Essential tremor | CPT/HCPCS: 64616; J0585; J9999 ==

== ENCOUNTER 2025-04-09 12:30 | Oncology outpatient (recurring) (ONCR) | payer MEDICARE, OTHER, SELFPAY ==
[2025-04-09] MEDS: ferric derisomaltose 1,000 MG in sodium chloride 0.9% (100 ml) 100 ML 330 MG IV (12:34)
[2025-04-09 13:18] VITALS: BP 129/78; PULSE 73; RESP 16; TEMP 36.4
== END 2025-04-22 23:59 | disposition home or self-care (01) ==
PROVIDERS: PCP Nurse Practitioner Family; Visit Provider Internal Medicine Medical Oncology
DX: D50.9 Iron deficiency anemia, unspecified; Z79.899 Other long term (current) drug therapy; Z53.9 Procedure and treatment not carried out, unspecified reason
CPT/HCPCS: 96365; 99205; J1437

== ENCOUNTER 2025-05-07 09:15 | Oncology outpatient (recurring) (ONCR) | payer MEDICARE, OTHER, SELFPAY ==
[2025-05-07 09:48] LABS: Hematocrit 40.8 % (36-47); Hemoglobin 12.70 g/dL (11.27-16.99); Mean Corpuscular HGB Conc 31.1 g/dL (30-55); Mean Corpuscular Hemoglobin 27.3 pg (27-33); Mean Corpuscular Volume 87.6 fl (85-98); Nucleated Red Blood Cells % 0 %; Platelet Count 86 10^3/cmm (157-399); Red Blood Count 4.66 10^6/uL (3.85-5.65); White Blood Count 3.40 10^3/uL (3.29-11.43)
[2025-05-07 10:19] LABS: Alanine Aminotransferase 6 U/L (0-33); Albumin Level 4.4 g/dL (3.5-5.2); Alkaline Phosphatase 112 U/L (35-105); Anion Gap 13.1 (5-19); Aspartate Amino Transferase 15 U/L (0-32); Blood Urea Nitrogen 18 mg/dL (8-23); Calcium 10.0 mg/dL (8.5-10.5); Carbon Dioxide 30 mmol/L (22-29); Chloride 103 mmol/L (98-107); Ferritin 284 ng/mL (15-150); Globulin 2.4 g/dL (1.3-4.6); Glucose 72 mg/dL (65-115); Iron 74 ug/dL (37-145); Osmolality Calculated 294 mOsm/kg (285-295); Potassium 4.1 mmol/L (3.5-5.1); Sodium 142 mmol/L (136-145); Total Iron Binding Capacity 255 mcg/dl; Total Protein 6.8 g/dL (6.6-8.7); Unsaturated Iron Binding 181 ug/dL (112-347)
== END 2025-05-23 23:59 | disposition home or self-care (01) ==
PROVIDERS: PCP Nurse Practitioner Family; Visit Provider Internal Medicine Medical Oncology
DX: D50.9 Iron deficiency anemia, unspecified (principal); D70.9 Neutropenia, unspecified; D69.6 Thrombocytopenia, unspecified; Z87.891 Personal history of nicotine dependence
CPT/HCPCS: 80053; 82728; 83540; 83550; 85025; 99213